=== PATIENT | male | born 1955 | race Caucasian/White ===

== ENCOUNTER 2022-02-17 06:19 | Inpatient (IN) | payer BC, MEDICARE, OTHER ==
[2022-02-17] MEDS ORDERED: SODIUM CHLORIDE 0.9% 1000 ML 1,000 ML IV ONE (08:15)
--- NOTE | 2022-02-17 08:18 | Emergency Department Report ---
<KLAUDIAKATT BAXTER Carmela - Last Filed: 02/17/22 09:42> ED General Adult HPI - General Chief complaint: Pain General Stated complaint: FOOT PAIN Time Seen by Provider: 02/17/22 07:56 Source: patient, family Mode of arrival: Wheelchair Limitations: Language Barrier, Physical Limitation - History of Present Illness Initial comments: Patient is a 66-year-old male that comes to the emergency room with right great toe pain. He is a patient of Dr. Arndt, vascular surgery. Dr. Arndt has called the ER and informed us that patient has known gangrene of the foot and will likely need surgery today. He has been made n.p.o. Patient is complaining of severe right foot pain. He has a PICC line and is receiving cephalosporins for his infection. Of note patient has had a previous kidney transplant. Dr. Arndt requested nephrology and ID consults. -: Gradual Location: lower extremity Severity scale (0 -10): 9 Quality: aching Consistency: constant Improves with: none Worsens with: none Associated Symptoms: denies other symptoms. denies: confusion, chest pain, cough, diaphoresis, fever/chills, headaches, loss of appetite, malaise, nausea/vomiting, rash, shortness of breath, syncope, weakness Treatments Prior to Arrival: other (Patient is on IV antibiotics) - Related Data Home Medications Medication Instructions Recorded Confirmed Last Taken Cinacalcet HCl [Sensipar] 60 mg PO DAILY 09/06/13 09/06/13 09/05/13 HYDROcodone/ACETAMINOPHEN 7.5 mg PO Q6HR PRN 09/06/13 09/06/13 09/05/13 [Hydrocodon-Acetaminoph 7.5-325] Lanthanum Carbonate [Fosrenol] 1,000 mg PO DAILY 09/06/13 09/06/13 Unknown NIFEdipine [NIFEdipine ER] 90 mg PO DAILY 09/06/13 09/06/13 09/07/13 08:00 Sevelamer Carbonate [Renvela] 800 mg PO TIDWM 09/06/13 09/06/13 09/05/13 Previous Rx's Medication Instructions Recorded Last Taken Type HYDROcodone/APAP 7.5-325 [[place] 1 - 2 each PO Q6HR PRN #30 tablet 09/07/13 Unknown Rx 7.5/325 mg] Allergies Allergy/AdvReac Type Severity Reaction Status Date / Time promethazine HCl AdvReac Mild Unknown Verified 09/07/13 10:51 [From Phenergan] ED Review of Systems Comment: All other systems reviewed and negative ED Past Medical Hx - Past Medical History Previous Medical History?: Yes Hx Hypertension: Yes (NO CHEST PAIN) Hx Diabetes: Yes Hx Seizures: No - Surgical History Past Surgical History?: Yes Hx Appendectomy: Yes Additional Surgical History: Status post amputation of right great toe--renal transplant patient - Social History Smoking Status: Former Smoker Substance Use Type: None - Medications Home Medications: Home Medications Medication Instructions Recorded Confirmed Last Taken Type Cinacalcet HCl [Sensipar] 60 mg PO DAILY 09/06/13 09/06/13 09/05/13 History HYDROcodone/ACETAMINOPHEN 7.5 mg PO Q6HR PRN 09/06/13 09/06/13 09/05/13 History [Hydrocodon-Acetaminoph 7.5-325] Lanthanum Carbonate [Fosrenol] 1,000 mg PO DAILY 09/06/13 09/06/13 Unknown History NIFEdipine [NIFEdipine ER] 90 mg PO DAILY 09/06/13 09/06/13 09/07/13 08:00 History Sevelamer Carbonate [Renvela] 800 mg PO TIDWM 09/06/13 09/06/13 09/05/13 History HYDROcodone/APAP 7.5-325 [[place] 1 - 2 each PO Q6HR PRN #30 tablet 09/07/13 Unknown Rx 7.5/325 mg] ED Physical Exam - General Limitations: No Limitations, Language Barrier, Physical Limitation General appearance: alert, in no apparent distress - Head Head exam: Present: atraumatic, normocephalic - Eye Eye exam: Present: normal appearance - ENT ENT exam: Present: mucous membranes moist - Neck Neck exam: Present: normal inspection - Respiratory Respiratory exam: Present: normal lung sounds bilaterally. Absent: respiratory distress - Cardiovascular Cardiovascular Exam: Present: regular rate, normal rhythm. Absent: systolic murmur, diastolic murmur, rubs, gallop - GI/Abdominal GI/Abdominal exam: Present: soft, normal bowel sounds - Rectal Rectal exam: Present: deferred - Extremities Exam Extremities exam: Present: normal inspection - Back Exam Back exam: Present: normal inspection - Neurological Exam Neurological exam: Present: alert, oriented X3 - Psychiatric Psychiatric exam: Present: normal affect, normal mood - Skin Skin exam: Present: warm, dry, intact, normal color. Absent: rash ED Course - Reevaluation(s) Reevaluation #1: 02/17/22 08:[address] Arndt- BIANCAO for likely surgery today 02/17/22 09:35 Staffed with [facility] I have ordered the consult to nephrology and ID: RN to call services Reevaluation #2: 02/17/22 09:36 Dr. Arndt updated. He will see patient. Reevaluation #3: 02/17/22 09:44 Patient has refused peripheral stick for blood cultures. I told him infectious disease has been consulted to make sure that he is not bacteremic and on appropriate antibiotics. I told him that these cultures could not be drawn from his PICC line. He states he will allow the lab to stick him. Patient does have a fistula in the left arm ED Medical Decision Making - Lab Data Result diagrams: 02/17/22 08:36 02/17/22 08:14 - Medical Decision Making Labs 02/17/22 02/17/22 02/17/22 08:14 08:36 08:36 WBC 8.9 RBC 4.46 Hgb 12.8 Hct 39.0 MCV 87 MCH 29 MCHC 33 RDW 14.8 Plt Count 156 Lymph % (Auto) 13.7 [place] % (Auto) 9.0 H Eos % (Auto) 1.2 Baso % (Auto) 0.5 Lymph # (Auto) 1.2 [place] # (Auto) 0.8 Eos # (Auto) 0.1 Baso # (Auto) 0.0 Seg Neutrophils % 75.6 H Seg Neutrophils # 6.7 Sodium 139 Potassium 3.7 Chloride 103.2 Carbon Dioxide 25 Anion Gap 15 BUN 13 Creatinine 0.6 L Estimated GFR > 60 BUN/Creatinine Ratio 22 Glucose 146 H Lactic Acid 1.60 Calcium 9.9 Total Bilirubin 0.20 AST 57 H ALT 192 H Alkaline Phosphatase 237 H Total Protein 6.5 Albumin 3.8 L Albumin/Globulin Ratio 1.4 Vital Signs 02/17/22 06:34 Temperature 97.5 F L Pulse Rate 104 H Respiratory 18 Rate Blood Pressure 143/64 [Right] O2 Sat by Pulse 100 Oximetry Patient has a PICC line in place, his antibiotics were infusing on admission. Labs noted Blood cultures pending. UA pending. Patient has been given a liter of normal saline while in the emergency room. Patient medicated for pain. Family is at bedside. Patient being admitted for vascular surgery evaluation by Dr. Arndt. [facility] will admit. ID and nephrology have been consulted. Patient and family has been updated on impending admission. They verbalized understanding. 0930 patient remains n.p.o. pending admission - Differential Diagnosis Gangrene, diabetic wound, rule out sepsis ED Disposition Clinical Impression: Gangrene of foot, Diabetes mellitus, History of kidney transplant Disposition: ADMITTED INPATIENT Is pt being admited?: Yes Does the pt Need Aspirin: No Condition: Stable Time of Disposition: 09:36 <BRIT BANG - Last Filed: 02/17/22 14:41> ED Review of Systems ROS: Stated complaint: FOOT PAIN Other details as noted in HPI ED Course Vital Signs 02/17/22 06:34 Temperature 97.5 F L Pulse Rate 104 H Respiratory 18 Rate Blood Pressure 143/64 [Right] O2 Sat by Pulse 100 Oximetry ED Medical Decision Making - Lab Data Result diagrams: 02/17/22 08:36 02/17/22 08:14 Critical care attestation.: If time is entered above; I have spent that time in minutes in the direct care of this critically ill patient, excluding procedure time.
[2022-02-17] MEDS ORDERED: MORPHINE 4 MG/1 ML INJ IV ONE (08:20)
[2022-02-17 09:00] LABS: Basophils % (Auto) 0.5 % (0.0-1.8); Eosinophils # (Auto) 0.1 K/mm3 (0.0-0.4); Eosinophils % (Auto) 1.2 % (0.0-4.3); Hemoglobin 12.8 gm/dl (11.8-15.2); Lymphocytes # (Auto) 1.2 K/mm3 (1.2-5.4); Lymphocytes % (Auto) 13.7 % (13.4-35.0); Mean Corpuscular HGB Conc 33 % (32-34); Mean Corpuscular Volume 87 fl (84-94); Monocytes # (Auto) 0.8 K/mm3 (0.0-0.8); Platelet Count 156 K/mm3 (140-440); Red Blood Count 4.46 M/mm3 (3.65-5.03); Red Cell Distribution Width 14.8 % (13.2-15.2)
[2022-02-17 09:20] LABS: Alanine Aminotransferase 192 units/L (7-56); Albumin 3.8 g/dL (3.9-5); BUN/Creatinine Ratio 22; Blood Urea Nitrogen 13 mg/dL (9-20); Calcium 9.9 mg/dL (8.4-10.2); Hemolysis Index 5
[2022-02-17 09:39] LABS: INR 0.87 (0.87-1.13)
[2022-02-17 09:40] LABS: Partial Thromboplastin Time 29.5 Sec. (24.2-36.6)
[2022-02-17] MEDS ORDERED: MORPHINE 4 MG/1 ML INJ IV PRN (11:00)
[2022-02-17] MEDS ORDERED: ACETAMINOPHEN 325 MG TAB PO PRN (11:00)
--- NOTE | 2022-02-17 11:03 | History and Physical Report ---
History of Present Illness Date of examination: 02/17/22 History of present illness: Patient is a 66-year-old male with history of gangrene, type 2 diabetes, hypertension, ESRD status post kidney transplant who presented with right great toe pain. He is followed by Dr. Arndt in the vascular surgery clinic for management of his gangrene. He was recently started on Rocephin for osteomyelitis 2 weeks ago. He reports waking up with 10 out of 10 throbbing pain this morning. He has never had similar pain in the past. He does have a PICC line in place. He reports taking all his medications and his gives him the Rocephin daily. Labs are notable for AST 57 ALT 182. All other labs and vitals were within normal limits. The patient was admitted for urgent vascular surgery intervention. Infectious disease and nephrology were consulted in the ED. Past History Past Medical History: diabetes, ESRD, hypertension, other (LLE limb ischemia) Past Surgical History: appendectomy, Other (kidney transplant, eye surgery) Social history: no significant social history. denies: smoking, alcohol abuse Family history: no significant family history Medications and Allergies Allergies Allergy/AdvReac Type Severity Reaction Status Date / Time promethazine HCl AdvReac Mild Unknown Verified 09/07/13 10:51 [From Phenergan] Home Medications Medication Instructions Recorded Confirmed Last Taken Type Cinacalcet HCl [Sensipar] 60 mg PO DAILY 09/06/13 09/06/13 09/05/13 History HYDROcodone/ACETAMINOPHEN 7.5 mg PO Q6HR PRN 09/06/13 09/06/13 09/05/13 History [Hydrocodon-Acetaminoph 7.5-325] Lanthanum Carbonate [Fosrenol] 1,000 mg PO DAILY 09/06/13 09/06/13 Unknown History NIFEdipine [NIFEdipine ER] 90 mg PO DAILY 09/06/13 09/06/13 09/07/13 08:00 History Sevelamer Carbonate [Renvela] 800 mg PO TIDWM 09/06/13 09/06/13 09/05/13 History HYDROcodone/APAP 7.5-325 [[place] 1 - 2 each PO Q6HR PRN #30 tablet 09/07/13 Unknown Rx 7.5/325 mg] Active Meds: Active Medications Acetaminophen (Acetaminophen 325 Mg Tab) 650 mg PO Q4H PRN PRN Reason: Pain MILD(1-3)/Fever >100.5/HELLER Hydrocodone Bitart/Acetaminophen (Hydrocodone/Acetaminophen 5-325 Mg Tab) 2 each PO Q6H PRN PRN Reason: Pain, Moderate (4-6) Heparin Sodium (Porcine) (Heparin 5,000 Unit/1 Ml Vial) 5,000 unit SUB-Q TID BR[place]KE Morphine Sulfate (Morphine 4 Mg/1 Ml Inj) 4 mg IV Q4H PRN PRN Reason: Pain , Severe (7-10) Ondansetron HCl (Ondansetron 4 Mg/2 Ml Inj) 4 mg IV Q8H PRN PRN Reason: Nausea And Vomiting Sodium Chloride (Sodium Chloride 0.9% 10 Ml Flush Syringe) 10 ml IV BID BROOKE Sodium Chloride (Sodium Chloride 0.9% 10 Ml Flush Syringe) 10 ml IV PRN PRN PRN Reason: LINE FLUSH Review of Systems All systems: negative Constitutional: no weight loss, no weight gain, no fever, no chills, no night sweats Ears, nose, mouth and throat: deferred Cardiovascular: no chest pain, no palpitations, no edema, no lightheadedness, no shortness of breath Respiratory: no cough, no shortness of breath, no dyspnea on exertion, no congestion, no wheezing Gastrointestinal: no abdominal pain, no nausea, no vomiting, no diarrhea, no loss of appetite Musculoskeletal: no shooting arm pain, no arm numbness/tingling, no low back pain, no leg numbness/tingling, no morning stiffness, no frequent falls Integumentary: deferred Neurological: no parathesias, no numbness, no syncope, no tremors, no headaches Endocrine: no polydipsia, no polyuria, no high blood sugars Exam - Physical Exam Narrative exam: GENERAL: Well-developed well-nourished. In no acute distress. HEENT: Normocephalic. Atraumatic. NECK: Supple. CHEST/LUNGS: CTAB on room air HEART/CARDIOVASCULAR: RRR. No murmur, rubs or gallops appreciated. ABDOMEN: +BS. NT/ND. SKIN: No rashes noted. NEURO: No focal motor deficit. Follows all commands. MUSCULOSKELETAL: No joint effusion EXTREMITIES: R foot bandaged, red, swollen and TTP. L foot with toe amputation. PSYCH: Cooperative. - Constitutional Vitals: Temp Pulse Resp BP Pulse Ox 97.5 F L 104 H 18 143/64 100 02/17/22 06:34 02/17/22 06:34 02/17/22 06:34 02/17/22 06:34 02/17/22 06:34 Results - Labs CBC & Chem 7: 02/17/22 08:36 02/17/22 08:14 Labs: Laboratory Last Values WBC 8.9 K/mm3 (4.5-11.0) 02/17/22 08:36 RBC 4.46 M/mm3 (3.65-5.03) 02/17/22 08:36 Hgb 12.8 gm/dl (11.8-15.2) 02/17/22 08:36 Hct 39.0 % (35.5-45.6) 02/17/22 08:36 MCV 87 fl (84-94) 02/17/22 08:36 MCH 29 pg (28-32) 02/17/22 08:36 MCHC 33 % (32-34) 02/17/22 08:36 RDW 14.8 % (13.2-15.2) 02/17/22 08:36 Plt Count 156 K/mm3 (140-440) 02/17/22 08:36 Lymph % (Auto) 13.7 % (13.4-35.0) 02/17/22 08:36 [place] % (Auto) 9.0 % (0.0-7.3) H 02/17/22 08:36 Eos % (Auto) 1.2 % (0.0-4.3) 02/17/22 08:36 Baso % (Auto) 0.5 % (0.0-1.8) 02/17/22 08:36 Lymph # (Auto) 1.2 K/mm3 (1.2-5.4) 02/17/22 08:36 [place] # (Auto) 0.8 K/mm3 (0.0-0.8) 02/17/22 08:36 Eos # (Auto) 0.1 K/mm3 (0.0-0.4) 02/17/22 08:36 Baso # (Auto) 0.0 K/mm3 (0.0-0.1) 02/17/22 08:36 Seg Neutrophils % 75.6 % (40.0-70.0) H 02/17/22 08:36 Seg Neutrophils # 6.7 K/mm3 (1.8-7.7) 02/17/22 08:36 PT 12.7 Sec. (12.2-14.9) 02/17/22 08:36 INR 0.87 (0.87-1.13) 02/17/22 08:36 APTT 29.5 Sec. (24.2-36.6) 02/17/22 08:36 Sodium 139 mmol/L (137-145) 02/17/22 08:14 Potassium 3.7 mmol/L (3.6-5.0) 02/17/22 08:14 Chloride 103.2 mmol/L (98-107) 02/17/22 08:14 Carbon Dioxide 25 mmol/L (22-30) 02/17/22 08:14 Anion Gap 15 mmol/L 02/17/22 08:14 BUN 13 mg/dL (9-20) 02/17/22 08:14 Creatinine 0.6 mg/dL (0.8-1.3) L 02/17/22 08:14 Estimated GFR > 60 ml/min 02/17/22 08:14 BUN/Creatinine Ratio 22 % 02/17/22 08:14 Glucose 146 mg/dL (75-100) H 02/17/22 08:14 Lactic Acid 1.60 mmol/L (0.7-2.0) 02/17/22 08:36 Calcium 9.9 mg/dL (8.4-10.2) 02/17/22 08:14 Total Bilirubin 0.20 mg/dL (0.1-1.2) 02/17/22 08:14 AST 57 units/L (5-40) H 02/17/22 08:14 ALT 192 units/L (7-56) H 02/17/22 08:14 Alkaline Phosphatase 237 units/L (35-129) H 02/17/22 08:14 Total Protein 6.5 g/dL (6.3-8.2) 02/17/22 08:14 Albumin 3.8 g/dL (3.9-5) L 02/17/22 08:14 Albumin/Globulin Ratio 1.4 % 02/17/22 08:14 Assessment and Plan Assessment and plan: #Right lower extremity critical limb ischemia #Gangrene #PAD #Osteomyelitis -Plan for endovascular revascularization tomorrow -Possible TMA on Thursday -Continue Plavix and cilostazol -access PICC line -ID consulted, assistance appreciated #Hypertension -currently controlled -will restart metoprolol succinate 50mg BID -goal SBP <160 #History of kidney transplant -transplanted 8 years ago -will continue prednisone and cellcept -Nephrology consulted, assistance appreciated -will avoid nephrotoxins #Insulin-dependent type 2 diabetes -patient takes levemir 18 QHS and novolog 16 units TID -will start SSI, lantus 10U qhs and novolog 6 units TID -will adjust according to POC glucose readings -goal BG 140-180 while inpatient #Advanced care planning -Disease education conducted, care plan discussed, diagnoses discussed, prognosis discussed, and patient acknowledges understanding with care plan -Time: +30 min Advance Directives: No VTE prophylaxis?: Chemical Plan of care discussed with patient/family: Yes
[2022-02-17] MEDS ORDERED: SODIUM CHLORIDE 0.9% 1000 ML 1,000 ML ONE ×2 (11:15→13:08)
--- NOTE | 2022-02-17 11:33 | Consultation ---
History of Present Illness - Reason for Consult Consult date: 02/17/22 - History of Present Illness The patient is a 66 year old male with ESRD s/p kidney transplant, he was admitted for worsening right toe pain and renal consult was requested for history of kidney transplant. he had kidney transplant done 8 years ago in [place]. Past History Past Medical History: hypertension Medications and Allergies Allergies Allergy/AdvReac Type Severity Reaction Status Date / Time promethazine HCl AdvReac Mild Unknown Verified 09/07/13 10:51 [From Phenergan] Home Medications Medication Instructions Recorded Confirmed Last Taken Type Cinacalcet HCl [Sensipar] 60 mg PO DAILY 09/06/13 09/06/13 09/05/13 History HYDROcodone/ACETAMINOPHEN 7.5 mg PO Q6HR PRN 09/06/13 09/06/13 09/05/13 History [Hydrocodon-Acetaminoph 7.5-325] Lanthanum Carbonate [Fosrenol] 1,000 mg PO DAILY 09/06/13 09/06/13 Unknown History NIFEdipine [NIFEdipine ER] 90 mg PO DAILY 09/06/13 09/06/13 09/07/13 08:00 History Sevelamer Carbonate [Renvela] 800 mg PO TIDWM 09/06/13 09/06/13 09/05/13 History HYDROcodone/APAP 7.5-325 [[place] 1 - 2 each PO Q6HR PRN #30 tablet 09/07/13 Unknown Rx 7.5/325 mg] Active Meds: Active Medications Acetaminophen (Acetaminophen 325 Mg Tab) 650 mg PO Q4H PRN PRN Reason: Pain MILD(1-3)/Fever >100.5/HELLER Hydrocodone Bitart/Acetaminophen (Hydrocodone/Acetaminophen 5-325 Mg Tab) 2 each PO Q6H PRN PRN Reason: Pain, Moderate (4-6) Heparin Sodium (Porcine) (Heparin 5,000 Unit/1 Ml Vial) 5,000 unit SUB-Q TID BR[place]KE Morphine Sulfate (Morphine 4 Mg/1 Ml Inj) 4 mg IV Q4H PRN PRN Reason: Pain , Severe (7-10) Ondansetron HCl (Ondansetron 4 Mg/2 Ml Inj) 4 mg IV Q8H PRN PRN Reason: Nausea And Vomiting Sodium Chloride (Sodium Chloride 0.9% 10 Ml Flush Syringe) 10 ml IV BID BROOKE Sodium Chloride (Sodium Chloride 0.9% 10 Ml Flush Syringe) 10 ml IV PRN PRN PRN Reason: LINE FLUSH Review of Systems All systems: negative (right toe pain) Exam - Vital Signs Vital signs: Vital Signs Temp Pulse Resp BP Pulse Ox 97.5 F L 104 H 18 143/64 100 02/17/22 06:34 02/17/22 06:34 02/17/22 06:34 02/17/22 06:34 02/17/22 06:34 Results - Lab Results 02/17/22 08:36 02/17/22 08:14 Most recent lab results Calcium 9.9 mg/dL (8.4-10.2) 02/17/22 08:14 Assessment and Plan Gangrene of foot Diabetes mellitus History of kidney transplant kidney function is normal will need to verify anti-rejection regimen as an outpatient, according to him , he is on Cellcept 500 mg BID and prednisone 50 mg once a day renally dose meds strict I&O daily weight.
[2022-02-17] MEDS ORDERED: HEPARIN/NS 5000 UNIT/500ML 1,000 ML IR ONE (12:27)
[2022-02-17] MEDS ORDERED: LIDOCAINE 2%/EPINEPHRINE 1:200,000 VIAL (20 ML) INFILTRATI ONE (12:27)
[2022-02-17] MEDS ORDERED: ceFAZolin/Water 2 GM/20 ML 2 GM/20 ML SYRINGE IV ONE (12:28)
--- NOTE | 2022-02-17 12:53 | Consultation ---
History of Present Illness - Reason for Consult Consult date: 02/17/22 gangrene RLE Requesting physician: KATT VILLALOBOS - History of Present Illness Patient is a 66-year-old male that comes to the emergency room with right great toe pain. He is a patient of Dr. Arndt, vascular surgery. Dr. Arndt has called the ER and informed us that patient has known gangrene of the foot and will likely need surgery today. He has been made n.p.o. Patient is complaining of severe right foot pain. He has a PICC line and is receiving cephalosporins for his infection. Of note patient has had a previous kidney transplant. Dr. Arndt requested nephrology and ID consults. Vascular consulted for gangrene of the right lower extremity. Patient has critical limb ischemia of the right lower extremity with a palpable right dorsalis pedis pulse but nonpalpable right posterior tibial pulse. His gangrene will require TMA. Patient is on outpatient antibiotics for osteomyelitis. He is on Rocephin daily. This can be corroborated with Dr. Miller and Dr. [facility]. Patient has a renal transplant. Will need nephrology consult. Patient will need preprocedural hydration for today. Past History Past Medical History: hypertension Medications and Allergies Allergies Allergy/AdvReac Type Severity Reaction Status Date / Time promethazine HCl AdvReac Mild Unknown Verified 09/07/13 10:51 [From Phenergan] Home Medications Medication Instructions Recorded Confirmed Last Taken Type Cinacalcet HCl [Sensipar] 60 mg PO DAILY 09/06/13 09/06/13 09/05/13 History HYDROcodone/ACETAMINOPHEN 7.5 mg PO Q6HR PRN 09/06/13 09/06/13 09/05/13 History [Hydrocodon-Acetaminoph 7.5-325] Lanthanum Carbonate [Fosrenol] 1,000 mg PO DAILY 09/06/13 09/06/13 Unknown History NIFEdipine [NIFEdipine ER] 90 mg PO DAILY 09/06/13 09/06/13 09/07/13 08:00 History Sevelamer Carbonate [Renvela] 800 mg PO TIDWM 09/06/13 09/06/13 09/05/13 History HYDROcodone/APAP 7.5-325 [[place] 1 - 2 each PO Q6HR PRN #30 tablet 09/07/13 Unknown Rx 7.5/325 mg] Active Meds: Active Medications Acetaminophen (Acetaminophen 325 Mg Tab) 650 mg PO Q4H PRN PRN Reason: Pain MILD(1-3)/Fever >100.5/HELLER Hydrocodone Bitart/Acetaminophen (Hydrocodone/Acetaminophen 5-325 Mg Tab) 2 each PO Q6H PRN PRN Reason: Pain, Moderate (4-6) Heparin Sodium (Porcine) (Heparin 5,000 Unit/1 Ml Vial) 5,000 unit SUB-Q TID BROOKE Sodium Chloride (Nacl 0.9% 1000 Ml) 1,000 mls @ 100 mls/hr IV DIRECT BROOKE Morphine Sulfate (Morphine 4 Mg/1 Ml Inj) 4 mg IV Q4H PRN PRN Reason: Pain , Severe (7-10) Mycophenolate Mofetil (Mycophenolate 500 Mg Tab) 500 mg PO BID BROOKE Ondansetron HCl (Ondansetron 4 Mg/2 Ml Inj) 4 mg IV Q8H PRN PRN Reason: Nausea And Vomiting Prednisone (Prednisone 5 Mg Tab) 5 mg PO QDAY BROOKE Sodium Chloride (Sodium Chloride 0.9% 10 Ml Flush Syringe) 10 ml IV BID BROOKE Sodium Chloride (Sodium Chloride 0.9% 10 Ml Flush Syringe) 10 ml IV PRN PRN PRN Reason: LINE FLUSH Review of Systems All systems: negative (see HPI) Exam - Constitutional Vitals: Temp Pulse Resp BP Pulse Ox 97.5 F L 104 H 18 143/64 100 02/17/22 06:34 02/17/22 06:34 02/17/22 06:34 02/17/22 06:34 02/17/22 06:34 General appearance: Present: no acute distress - EENT Eyes: Present: EOM intact ENT: hearing intact - Respiratory Respiratory effort: normal - Extremities Extremities: abnormal (Worsening gangrene of the right third, fourth, and amputation bed of the fifth digit with lateral foot gangrene ) - Abdominal General gastrointestinal: Present: soft, non-tender - Psychiatric Psychiatric: appropriate mood/affect, cooperative Results - Labs CBC & Chem 7: 02/17/22 08:36 02/17/22 08:14 Labs: Abnormal lab results 02/17/22 02/17/22 Range/Units 08:14 08:36 [place] % (Auto) 9.0 H (0.0-7.3) % Seg Neutrophils % 75.6 H (40.0-70.0) % Creatinine 0.6 L (0.8-1.3) mg/dL Glucose 146 H (75-100) mg/dL AST 57 H (5-40) units/L ALT 192 H (7-56) units/L Alkaline Phosphatase 237 H (35-129) units/L Albumin 3.8 L (3.9-5) g/dL Assessment and Plan 66-year-old male with end-stage renal disease status post renal transplant with previous left lower extremity critical limb ischemia status post limb salvage who now presents with right lower extremity critical limb ischemia with progressive gangrene. Patient requires endovascular revascularization of the right lower extremity. Risk, benefits, and alternatives discussed. Afterwards, patient will be made n.p.o. for TMA tomorrow with possible graft material. This was discussed in depth with patient. He agrees with procedure. Patient will likely require wound VAC after procedure and wound VAC order was already placed. Continue Plavix and cilostazol. Patient has outpatient continuous IV antibiotics running. ID will need to be consulted for management. Patient has end-stage renal disease status post renal transplant. Require nephrology consult for management.
[2022-02-17] MEDS ORDERED: NITROGLYCERIN DRIP 50 MG/250 ML BOTTLE ONE (13:09)
[2022-02-17] MEDS ORDERED: VERAPAMIL 5 MG/2 ML INJ ONE (13:09)
[2022-02-17] MEDS: MIDAZOLAM 2 MG/2 ML INJ ONE ×3 (13:12→14:08)
[2022-02-17] MEDS: fentaNYL 100 MCG/2 ML INJ ONE ×3 (13:13→14:07)
[2022-02-17] MEDS: HEPARIN 10,000 UNITS/10 ML VIAL ONE ×2 (13:34→14:10)
[2022-02-17] MEDS ORDERED: MIDAZOLAM 2 MG/2 ML INJ ONE (14:12)
[2022-02-17] MEDS ORDERED: fentaNYL 100 MCG/2 ML INJ ONE (14:13)
[2022-02-17] MEDS ORDERED: ALUM-MAG HYDROXIDE-SIMETHICONE 200-200-20MG/5ML ORAL LIQD 30 ML ONE (14:39)
[2022-02-17] MEDS: CLOPIDOGREL 300 MG TAB PO ONE ×2 (14:51→17:40)
--- NOTE | 2022-02-17 17:18 | Post Operative Note ---
Date of procedure: 02/17/22 Pre-op diagnosis: Critical limb ischemia of the right lower extremity Post-op diagnosis: same Procedure: 1. Ultrasound-guided access of the left common femoral artery. 2. Angiography of the left lower extremity. 3. Selection of the abdominal aorta with angiography. 4. Selection of the right external iliac artery, superficial femoral artery, and popliteal artery with angiography. 5. Selection of the right posterior tibial artery, common plantar artery, and lateral plantar artery. 6. Angioplasty of the lateral plantar artery, common plantar artery, and distal posterior tibial artery with a 1.5 mm x 20 mm coronary angioplasty balloon 7. Infusion of nitroglycerin in the lateral plantar artery, common plantar artery, and distal posterior tibial artery. 8. Closure of the left common femoral artery with 6 German Pro style Anesthesia: local (With conscious sedation) Surgeon: JAVY JUDD Estimated blood loss: minimal Condition: stable Disposition: floor
--- NOTE | 2022-02-17 17:19 | Operative Report ---
Operative Report Operative Report: EXAM: 1. Ultrasound-guided access of the left common femoral artery. 2. Angiography of the left lower extremity. 3. Selection of the abdominal aorta with angiography. 4. Selection of the right external iliac artery, superficial femoral artery, and popliteal artery with angiography. 5. Selection of the right posterior tibial artery, common plantar artery, and lateral plantar artery. 6. Angioplasty of the lateral plantar artery, common plantar artery, and distal posterior tibial artery with a 1.5 mm x 20 mm coronary angioplasty balloon 7. Infusion of nitroglycerin in the lateral plantar artery, common plantar artery, and distal posterior tibial artery. 8. Closure of the left common femoral artery with 6 Uzbek Pro style DATE: 02/17/2022 PERMANENT MOLD SUPERVISOR: JAVY JUDD MD INDICATION: Critical limb ischemia of the left lower extremity with gangrene MEDICATIONS: Please see nursing report for full details. DEVICES: 1.5 mm x 20 mm balloon CONTRAST: Please see catheter report for full details. PROCEDURE: The risk, benefits, and alternatives were discussed; written informed consent was obtained. Patient was brought to the [facility] and the groins were prepped and draped in a sterile fashion. Ultrasound was used to evaluate the left common femoral artery which was patent. 21-gauge micropuncture needle was used to access the left common femoral artery under ultrasound guidance. 0.018 inch wire was passed into the aorta. Needle was exchanged for transitional dilator. Wire was exchanged for a 0.035 inch wire. Transitional dilator was exchanged for 5 Uzbek sheath. Digital subtraction angiography was performed demonstrating patency of the left external iliac artery, common femoral artery, proximal superficial femoral artery, and profunda femoral artery. The puncture was appropriate, above the bifurcation and below the inferior epigastric artery. The abdominal aorta was selected and digital subtraction angiography was performed. The right external iliac artery, superficial femoral artery, and popliteal artery were selected and digital subtraction angiography was per formed. Digital subtraction angiography demonstrated patency of the infrarenal abdominal aorta, bilateral common iliac arteries, external iliac arteries, and internal iliac arteries. The right common femoral artery, profunda femoral artery, superficial femoral artery, and popliteal artery were patent. The right renal transplant arising from the right iliac bifurcation was patent. There was infrapopliteal arterial disease. The anterior tibial artery was small but patent to the level of the distal calf at which point there was a 30 to 40% stenosis and resumption of the small caliber of the vessel with patency of the dorsalis pedis artery which was small and lateral tarsal artery which was small. The tibioperoneal trunk was patent. The peroneal artery was small but patent. The posterior tibial artery was small in caliber and patent to the level of the ankle. There was a 90% stenosis of the common plantar artery, a short segment occlusion of the lateral plantar artery, and a diminutive medial plantar artery. There was sluggish flow from the ankle to the foot. After reviewing the diagnostic angiogram the past, the patient was heparinized. Sheath was exchanged for 6 Uzbek 90 cm [place] destination positioned in the right popliteal artery. Wire and catheter were used to cross the posterior tibial artery and then the lateral plantar artery. Digital subtraction angiography was performed confirming position. 1.5 mm x 20 mm coronary angioplasty balloon was then used to perform angioplasty of the lateral plantar artery, and common plantar artery. Large amounts of nit roglycerin were used to prevent spasm. Digital subtraction angiography was performed demonstrating 20% residual narrowing of the common plantar artery and lateral plantar artery with direct flow into the foot. Upon injection at the level of the knee, the posterior tibial artery and anterior tibial artery are now equal in speed without sluggish flow. At this point, all wires, catheters, and sheaths were retracted to the left external iliac artery and the site was closed with a 6 Uzbek Pro style. Patient tolerated the procedure well. No immediate postprocedural complications. FINDINGS: Please see procedure note above IMPRESSION: Successful angioplasty and revascularization of the right common plantar artery and lateral plantar artery of the posterior tibial artery distribution.
[2022-02-17] MEDS ORDERED: DEXTROSE 50% IN WATER (25GM) 50 ML SYRINGE IV PRN (17:24)
[2022-02-17] MEDS: HEPARIN 5,000 UNIT/1 ML VIAL SUB-Q SCH (17:40)
[2022-02-17] MEDS: predniSONE 5 MG TAB PO SCH (17:41)
[2022-02-17] MEDS: FAMOTIDINE 20 MG TAB PO SCH (18:02)
[2022-02-17] MEDS: CILOSTAZOL 100 MG TAB PO SCH (18:22)
[2022-02-17] MEDS: HYDROcodone/ACETAMINOPHEN 5-325 MG TAB PO PRN (22:32)
[2022-02-18] MEDS: cefTRIAXone/NS 2 GM/100 ML 2 GM/100 ML BAG IV SCH ×2 (01:23→20:51)
[2022-02-18] MEDS: MYCOPHENOLATE 500 MG TAB PO SCH ×3 (01:24→21:10)
[2022-02-18] MEDS: HEPARIN 5,000 UNIT/1 ML VIAL SUB-Q SCH ×4 (01:24→20:51)
[2022-02-18] MEDS: INSULIN LISPRO 100 UNIT/ML SUB-Q SCH ×5 (01:25→22:00)
[2022-02-18] MEDS: INSULIN GLARGINE 100 UNITS/ML SUB-Q SCH ×2 (01:25→21:18)
[2022-02-18] MEDS: CILOSTAZOL 100 MG TAB PO SCH ×3 (01:27→21:10)
[2022-02-18] MEDS: SODIUM CHLORIDE 0.9% 1000 ML 1,000 ML IV SCH ×2 (01:33→12:16)
[2022-02-18] MEDS: HYDROcodone/ACETAMINOPHEN 5-325 MG TAB PO PRN (04:15)
[2022-02-18] MEDS: HYDROmorphone 1 MG/1 ML INJ IV PRN ×4 (04:33→20:51)
[2022-02-18 05:35] LABS: Basophils % (Auto) 0.3 % (0.0-1.8); Eosinophils # (Auto) 0.1 K/mm3 (0.0-0.4); Eosinophils % (Auto) 1.3 % (0.0-4.3); Hematocrit 34.9 % (35.5-45.6); Hemoglobin 11.5 gm/dl (11.8-15.2); Lymphocytes # (Auto) 1.1 K/mm3 (1.2-5.4); Lymphocytes % (Auto) 14.4 % (13.4-35.0); Mean Corpuscular HGB Conc 33 % (32-34); Mean Corpuscular Volume 88 fl (84-94); Monocytes # (Auto) 0.6 K/mm3 (0.0-0.8); Monocytes % (Auto) 8.6 % (0.0-7.3); Platelet Count 141 K/mm3 (140-440); Red Blood Count 3.98 M/mm3 (3.65-5.03); Red Cell Distribution Width 14.8 % (13.2-15.2)
[2022-02-18 05:46] LABS: INR 0.88 (0.87-1.13)
[2022-02-18 05:52] LABS: Blood Urea Nitrogen 10 mg/dL (9-20); Calcium 9.2 mg/dL (8.4-10.2); Hemolysis Index 5
[2022-02-18 06:03] LABS: BUN/Creatinine Ratio 17
--- NOTE | 2022-02-18 09:10 | Progress Note ---
Assessment and Plan Assessment and plan: History of present illness: Patient is a 66-year-old male with history of gangrene, type 2 diabetes, hypertension, ESRD status post kidney transplant who presented with right great toe pain. He is followed by Dr. Arndt in the vascular surgery clinic for management of his gangrene. He was recently started on Rocephin for osteomyelitis 2 weeks ago. He reports waking up with 10 out of 10 throbbing pain this morning. He has never had similar pain in the past. He does have a PICC line in place. He reports taking all his medications and his gives him the Rocephin daily. Labs are notable for AST 57 ALT 182. All other labs and vitals were within normal limits. The patient was admitted for urgent vascular surgery intervention. Infectious disease and nephrology were consulted in the ED. Hospital Course: 02/18: Plan for TMA today with IR. Will follow up post op. Assessment and Plan: #Right lower extremity critical limb ischemia #Gangrene #PAD #Osteomyelitis -Plan for endovascular revascularization 02/18 by IR -Possible TMA on Thursday -Continue Plavix and cilostazol -access PICC line -ID consulted, assistance appreciated #Hypertension -currently controlled -will restart metoprolol succinate 50mg BID -goal SBP <160 #History of kidney transplant -transplanted 8 years ago -will continue prednisone and cellcept -Nephrology consulted, assistance appreciated -will avoid nephrotoxins #Insulin-dependent type 2 diabetes -patient takes levemir 18 QHS and novolog 16 units TID - SSI, lantus 10U qhs and novolog 6 units TID -will adjust according to POC glucose readings -goal BG 140-180 while inpatient #Obesity + 30 min preventative health counseling on for balanced diet /regular exercise, blood sugar optimization, risk factor modification, medication compliance in light of kidney transplant and critical limb ischemia. The high probability of a clinically significant, sudden or life threatening deterioration of the [multi] system(s) required my full and direct attention, intervention and personal management. The aggregate critical care time was [60] minutes. This time is in addition to time spent performing reported procedures but includes the following: [x] Data Review and interpretation [x] Patient assessment and monitoring of vital signs [x] Documentation [x] Medication orders and management History Interval history: Patient to OR for TMA. Hospitalist Physical - Physical exam Narrative exam: Physical Exam: VITAL SIGNS: Reviewed. GENERAL: Well-developed well-nourished. In no acute distress. HEENT: Normocephalic. Atraumatic. NECK: Supple. CHEST/LUNGS: CTAP on room air HEART/CARDIOVASCULAR: RRR. No murmur, rubs or gallops appreciated. ABDOMEN: +BS. NT/ND. SKIN: No rashes noted. NEURO: No focal motor deficit. Follows all commands. MUSCULOSKELETAL: No joint effusion EXTREMITIES: R foot bandaged, red, swollen and TTP. L foot with toe amputation. PSYCH: Cooperative. - Constitutional Vitals: Temp Pulse Resp BP Pulse Ox 98.6 F 89 15 140/46 97 02/18/22 03:00 02/18/22 07:00 02/18/22 07:00 02/18/22 07:00 02/18/22 07:00 General appearance: Present: no acute distress Results - Labs CBC & Chem 7: 02/18/22 04:00 02/18/22 04:00 Labs: Laboratory Last Values WBC 7.4 K/mm3 (4.5-11.0) 02/18/22 04:00 RBC 3.98 M/mm3 (3.65-5.03) 02/18/22 04:00 Hgb 11.5 gm/dl (11.8-15.2) L 02/18/22 04:00 Hct 34.9 % (35.5-45.6) L 02/18/22 04:00 MCV 88 fl (84-94) 02/18/22 04:00 MCH 29 pg (28-32) 02/18/22 04:00 MCHC 33 % (32-34) 02/18/22 04:00 RDW 14.8 % (13.2-15.2) 02/18/22 04:00 Plt Count 141 K/mm3 (140-440) 02/18/22 04:00 Lymph % (Auto) 14.4 % (13.4-35.0) 02/18/22 04:00 [place] % (Auto) 8.6 % (0.0-7.3) H 02/18/22 04:00 Eos % (Auto) 1.3 % (0.0-4.3) 02/18/22 04:00 Baso % (Auto) 0.3 % (0.0-1.8) 02/18/22 04:00 Lymph # (Auto) 1.1 K/mm3 (1.2-5.4) L 02/18/22 04:00 [place] # (Auto) 0.6 K/mm3 (0.0-0.8) 02/18/22 04:00 Eos # (Auto) 0.1 K/mm3 (0.0-0.4) 02/18/22 04:00 Baso # (Auto) 0.0 K/mm3 (0.0-0.1) 02/18/22 04:00 Seg Neutrophils % 75.4 % (40.0-70.0) H 02/18/22 04:00 Seg Neutrophils # 5.6 K/mm3 (1.8-7.7) 02/18/22 04:00 PT 12.9 Sec. (12.2-14.9) 02/18/22 04:00 INR 0.88 (0.87-1.13) 02/18/22 04:00 APTT 29.5 Sec. (24.2-36.6) 02/17/22 08:36 Sodium 136 mmol/L (137-145) L 02/18/22 04:00 Potassium 4.3 mmol/L (3.6-5.0) 02/18/22 04:00 Chloride 102.6 mmol/L (98-107) 02/18/22 04:00 Carbon Dioxide 24 mmol/L (22-30) 02/18/22 04:00 Anion Gap 14 mmol/L 02/18/22 04:00 BUN 10 mg/dL (9-20) 02/18/22 04:00 Creatinine 0.6 mg/dL (0.8-1.3) L 02/18/22 04:00 Estimated GFR > 60 ml/min 02/18/22 04:00 BUN/Creatinine Ratio 17 % 02/18/22 04:00 Glucose 205 mg/dL (75-100) H 02/18/22 04:00 POC Glucose 198 mg/dL (70-105) H 02/18/22 06:24 Lactic Acid 1.60 mmol/L (0.7-2.0) 02/17/22 08:36 Calcium 9.2 mg/dL (8.4-10.2) 02/18/22 04:00 Total Bilirubin 0.20 mg/dL (0.1-1.2) 02/17/22 08:14 AST 57 units/L (5-40) H 02/17/22 08:14 ALT 192 units/L (7-56) H 02/17/22 08:14 Alkaline Phosphatase 237 units/L (35-129) H 02/17/22 08:14 Total Protein 6.5 g/dL (6.3-8.2) 02/17/22 08:14 Albumin 3.8 g/dL (3.9-5) L 02/17/22 08:14 Albumin/Globulin Ratio 1.4 % 02/17/22 08:14 Blood Type O POSITIVE 02/17/22 08:36 Antibody Screen Negative 02/17/22 08:36 Microbiology: Microbiology 02/17/22 08:36 Peripheral/Venous Blood Culture - Preliminary Culture in Progress 02/17/22 08:36 Peripheral/Venous Blood Culture - Preliminary Culture in Progress Simmons/IV: Voiding Method Urinal Active Medications - Current Medications Current Medications: Generic Name Dose Route Start Last Admin Trade Name Freq PRN Reason Stop Dose Admin Acetaminophen 650 mg 02/17/22 11:00 Acetaminophen 325 Mg Tab PO Q4H PRN Pain MILD(1-3)/Fever >100.5/HELLER Hydrocodone Bitart/Acetaminophen 2 each 02/17/22 11:00 02/18/22 04:15 Hydrocodone/Acetaminophen 5-325 Mg Tab PO 2 each Q6H PRN Administration Pain, Moderate (4-6) Cilostazol 100 mg 02/17/22 15:00 02/18/22 01:27 Cilostazol 100 Mg Tab PO Not Given BID BROOKE Clopidogrel Bisulfate 75 mg 02/18/22 10:00 Clopidogrel 75 Mg Tab PO QDAY BROOKE Dextrose 50 ml 02/17/22 17:24 Dextrose 50% In Water (25gm) 50 Ml Syringe IV Q30MIN PRN Hypoglycemia Protocol Famotidine 40 mg 02/17/22 16:00 02/17/22 18:02 Famotidine 20 Mg Tab PO 40 mg QDAY BROOKE Administration Heparin Sodium (Porcine) 5,000 unit 02/17/22 14:00 02/18/22 01:24 Heparin 5,000 Unit/1 Ml Vial SUB-Q 5,000 unit TID BROOKE Administration Hydromorphone HCl 0.5 mg 02/17/22 14:38 02/18/22 04:33 Hydromorphone 1 Mg/1 Ml Inj IV 0.5 mg Q2H PRN Administration Pain , Severe (7-10) Sodium Chloride 1,000 mls @ 100 mls/hr 02/17/22 12:00 02/18/22 01:33 Nacl 0.9% 1000 Ml IV 100 mls/hr DIRECT BROOKE Administration Cefazolin Sodium 2 gm in 20 mls @ 80 mls/hr 02/18/22 12:00 Ancef/Sterile Water 2 Gm/20 Ml IV 02/18/22 20:00 PREOP NR Protocol Ceftriaxone Sodium 2 gm in 100 mls @ 200 mls/hr 02/17/22 20:00 02/18/22 01:23 Rocephin/Ns 2 Gm/100 Ml IV 200 mls/hr Q24H BROOKE Administration Protocol Insulin Glargine 10 units 02/17/22 22:00 02/18/22 01:25 Insulin Glargine 100 Units/Ml SUB-Q Not Given QHS [facility] Insulin Human Lispro 0 unit 02/17/22 22:00 02/18/22 01:25 Insulin Lispro 100 Unit/Ml SUB-Q Not Given ACHS [facility] Protocol Insulin Human Regular 6 units 02/18/22 07:30 Insulin Regular, Human 100 Units/1 Ml SUB-Q AC [facility] Metoprolol Succinate 50 mg 02/18/22 10:00 Metoprolol Succinate Xl 50 Mg Tab PO QDAY [facility] Mycophenolate Mofetil 500 mg 02/17/22 22:00 02/18/22 01:24 Mycophenolate 500 Mg Tab PO Not Given BID BROOKE Ondansetron HCl 4 mg 02/17/22 11:00 Ondansetron 4 Mg/2 Ml Inj IV Q8H PRN Nausea And Vomiting Prednisone 5 mg 02/17/22 12:00 02/17/22 17:41 Prednisone 5 Mg Tab PO Not Given QDAY BROOKE Sodium Chloride 10 ml 02/17/22 22:00 02/18/22 01:27 Sodium Chloride 0.9% 10 Ml Flush Syringe IV 10 ml BID BROOKE Administration Sodium Chloride 10 ml 02/17/22 11:00 Sodium Chloride 0.9% 10 Ml Flush Syringe IV PRN PRN LINE FLUSH
[2022-02-18] MEDS: INSULIN REGULAR, HUMAN 100 UNITS/1 ML SUB-Q SCH ×3 (09:32→16:47)
--- NOTE | 2022-02-18 10:29 | Anesthesia Day of Surgery ---
Anesthesia Day of Surgery - Day of Surgery Patient Examined: Yes Patient H&P Reviewed: Yes Patient is NPO: Yes
--- NOTE | 2022-02-18 10:33 | Anesthesia Consultation ---
Anesthesia Consult and Med Hx Date of service: 02/18/22 - Airway Anesthetic Teeth Evaluation: Good ROM Head & Neck: Adequate Mental/Hyoid Distance: Adequate Mallampati Class: Class III Intubation Access Assessment: Probably Good - Pulmonary Exam CTA: Yes - Cardiac Exam Cardiac Exam: RRR - Pre-Operative Health Status ASA Pre-Surgery Classification: ASA3 Proposed Anesthetic Plan: General - Pulmonary Hx Smoking: Yes (QUIT 1979) - Cardiovascular System Hx Hypertension: Yes (NO CHEST PAIN) Hx Coronary Artery Disease: Yes (CAROTID STENOSIS) - Central Nervous System Hx Seizures: No - Gastrointestinal Hx Gastroesophageal Reflux Disease: No - Endocrine Hx End Stage Renal Disease: Yes (LAST DIALYSIS 09/06/13) Hx Insulin Dependent Diabetes: Yes Hx Non-Insulin Dependent Diabetes: Yes - Hematic Hx Anemia: Yes - Other Systems Hx Alcohol Use: Yes (DAILY) Hx Substance Use: No Hx Obesity: No - Additional Comments Anesthesia Medical History Comments: NAC with past surgical history: appendectomy, cataract, kidney transplant
[2022-02-18] MEDS ORDERED: LACTATED RINGERS 1,000 ML ONE (11:02)
[2022-02-18 11:56] LABS: Bilirubin,Urine NEG (Negative); Blood,Urine SM (Negative); Color,Urine Yellow (Yellow); Mucus,Urine FEW /HPF; Urobilinogen,Urine < 2.0 mg/dL (<2.0)
[2022-02-18] MEDS ORDERED: ceFAZolin/Water 2 GM/20 ML 2 GM/20 ML SYRINGE IV NR (12:00)
--- NOTE | 2022-02-18 12:10 | Progress Note ---
Assessment and Plan Gangrene of foot Diabetes mellitus History of kidney transplant kidney function is normal cont Cellcept 500 mg BID and prednisone 50 mg once a day renally dose meds strict I&O daily weight. Subjective Date of service: 02/18/22 Interval history: off the floor this AM Objective - Vital Signs Vital signs: Vital Signs - 12hr 02/18/22 02/18/22 02/18/22 01:00 02:00 03:00 Temperature 98.6 F Pulse Rate 102 H 91 H 86 Respiratory 13 20 14 Rate Blood Pressure 144/38 137/33 118/27 O2 Sat by Pulse 97 94 95 Oximetry 02/18/22 02/18/22 02/18/22 04:00 04:15 05:00 Temperature Pulse Rate 116 H 104 H Respiratory 21 15 17 Rate Blood Pressure 113/93 135/40 O2 Sat by Pulse 96 94 Oximetry 02/18/22 02/18/22 02/18/22 06:00 07:00 09:00 Temperature 98.6 F Pulse Rate 97 H 89 94 H Respiratory 15 15 37 H Rate Blood Pressure 116/31 140/46 156/61 O2 Sat by Pulse 92 97 100 Oximetry 02/18/22 02/18/22 02/18/22 10:00 11:00 11:34 Temperature 98.4 F Pulse Rate Respiratory 18 Rate Blood Pressure 156/61 164/47 O2 Sat by Pulse 97 97 Oximetry - Lab 02/18/22 04:00 02/18/22 04:00 Most recent lab results Calcium 9.2 mg/dL (8.4-10.2) 02/18/22 04:00 Medications & Allergies - Medications Allergies/Adverse Reactions: Allergies promethazine HCl [From Phenergan] Adverse Reaction (Mild, Verified 09/07/13 10:51) Unknown PT STATES HE GETS ERECTION WITH PHENERGAN. HE STATES HE DOES NOT LIKE THIS MEDICATION. Home Medications: Home Medications Medication Instructions Recorded Confirmed Last Taken Type Cinacalcet HCl [Sensipar] 60 mg PO DAILY 09/06/13 09/06/13 09/05/13 History HYDROcodone/ACETAMINOPHEN 7.5 mg PO Q6HR PRN 09/06/13 09/06/13 09/05/13 History [Hydrocodon-Acetaminoph 7.5-325] Lanthanum Carbonate [Fosrenol] 1,000 mg PO DAILY 09/06/13 09/06/13 Unknown History NIFEdipine [NIFEdipine ER] 90 mg PO DAILY 09/06/13 09/06/13 09/07/13 08:00 History Sevelamer Carbonate [Renvela] 800 mg PO TIDWM 09/06/13 09/06/13 09/05/13 History HYDROcodone/APAP 7.5-325 [[place] 1 - 2 each PO Q6HR PRN #30 tablet 09/07/13 Unknown Rx 7.5/325 mg] Active Medications: Generic Name Dose Route Start Last Admin Trade Name Freq PRN Reason Stop Dose Admin Acetaminophen 650 mg 02/17/22 11:00 Acetaminophen 325 Mg Tab PO Q4H PRN Pain MILD(1-3)/Fever >100.5/HELLER Hydrocodone Bitart/Acetaminophen 2 each 02/17/22 11:00 02/18/22 04:15 Hydrocodone/Acetaminophen 5-325 Mg Tab PO 2 each Q6H PRN Administration Pain, Moderate (4-6) Cilostazol 100 mg 02/17/22 15:00 02/18/22 01:27 Cilostazol 100 Mg Tab PO Not Given BID BROOKE Clopidogrel Bisulfate 75 mg 02/18/22 10:00 Clopidogrel 75 Mg Tab PO QDAY BROOKE Dextrose 50 ml 02/17/22 17:24 Dextrose 50% In Water (25gm) 50 Ml Syringe IV Q30MIN PRN Hypoglycemia Protocol Famotidine 40 mg 02/17/22 16:00 02/17/22 18:02 Famotidine 20 Mg Tab PO 40 mg QDAY BROOKE Administration Heparin Sodium (Porcine) 5,000 unit 02/17/22 14:00 02/18/22 09:37 Heparin 5,000 Unit/1 Ml Vial SUB-Q Not Given TID BROOKE Hydromorphone HCl 0.5 mg 02/17/22 14:38 02/18/22 04:33 Hydromorphone 1 Mg/1 Ml Inj IV 0.5 mg Q2H PRN Administration Pain , Severe (7-10) Sodium Chloride 1,000 mls @ 100 mls/hr 02/17/22 12:00 02/18/22 01:33 Nacl 0.9% 1000 Ml IV 100 mls/hr DIRECT BROOKE Administration Cefazolin Sodium 2 gm in 20 mls @ 80 mls/hr 02/18/22 12:00 Ancef/Sterile Water 2 Gm/20 Ml IV 02/18/22 20:00 PREOP NR Protocol Ceftriaxone Sodium 2 gm in 100 mls @ 200 mls/hr 02/17/22 20:00 02/18/22 01:23 Rocephin/Ns 2 Gm/100 Ml IV 200 mls/hr Q24H BROOKE Administration Protocol Insulin Glargine 10 units 02/17/22 22:00 02/18/22 01:25 Insulin Glargine 100 Units/Ml SUB-Q Not Given QHS [facility]OO[facility] Insulin Human Lispro 0 unit 02/17/22 22:00 02/18/22 09:32 Insulin Lispro 100 Unit/Ml SUB-Q Not Given ACHS [facility] Protocol Insulin Human Regular 6 units 02/18/22 07:30 02/18/22 09:32 Insulin Regular, Human 100 Units/1 Ml SUB-Q Not Given AC [facility] Metoprolol Succinate 50 mg 02/18/22 10:00 Metoprolol Succinate Xl 50 Mg Tab PO QDAY [facility] Mycophenolate Mofetil 500 mg 02/17/22 22:00 02/18/22 01:24 Mycophenolate 500 Mg Tab PO Not Given BID [facility] Ondansetron HCl 4 mg 02/17/22 11:00 Ondansetron 4 Mg/2 Ml Inj IV Q8H PRN Nausea And Vomiting Prednisone 5 mg 02/17/22 12:00 02/17/22 17:41 Prednisone 5 Mg Tab PO Not Given QDAY [facility] Sodium Chloride 10 ml 02/17/22 22:00 02/18/22 01:27 Sodium Chloride 0.9% 10 Ml Flush Syringe IV 10 ml BID BROOKE Administration Sodium Chloride 10 ml 02/17/22 11:00 Sodium Chloride 0.9% 10 Ml Flush Syringe IV PRN PRN LINE FLUSH
[2022-02-18] MEDS ORDERED: LIDOCAINE (1%) 10 MG/1 ML VIAL 20 ML MDV ONE (12:55)
[2022-02-18] MEDS ORDERED: propofoL 200 MG/20 ML VIAL IV ONE (13:01)
[2022-02-18] MEDS ORDERED: LIDOCAINE MPF (2%) 20 MG/1 ML VIAL 5 ML ONE (13:01)
[2022-02-18] MEDS ORDERED: fentaNYL 100 MCG/2 ML INJ ONE ×2 (13:26→14:07)
[2022-02-18] MEDS ORDERED: SODIUM CHLORIDE 0.9% IRR 1,500 ML BOTTLE IR ONE (13:40)
[2022-02-18] MEDS ORDERED: HYDROmorphone 1 MG/1 ML INJ IV PRN (15:04)
[2022-02-18] MEDS ORDERED: ONDANSETRON 4 MG/2 ML INJ IV PRN (15:04)
--- NOTE | 2022-02-18 15:07 | Progress Note ---
Assessment and Plan Patient in OR during rounds. Obtain cultures, continue empiric antibiotics. We will see on rounds tomorrow. Subjective Date of service: 02/18/22 Interval history: Afebrile, normal. Blood cultures with 1 bottle gram-positive cocci Objective - Constitutional Vitals: Vital Signs Temp Pulse Resp BP Pulse Ox 98.4 F 101 H 28 H 206/62 99 02/18/22 12:00 02/18/22 12:00 02/18/22 12:00 02/18/22 12:00 02/18/22 12:00 Temperature -Last 24 Hours Temperature 98.4 F Temperature 98.4 F Temperature 98.4 F Temperature 98.5 F Temperature 98.6 F Temperature 98.6 F Temperature 98.7 F Temperature 98.6 F Temperature 97.5 F Temperature 97.5 F - Labs CBC & Chem 7: 02/18/22 04:00 02/18/22 04:00 Labs: Abnormal lab results 02/17/22 02/18/22 02/18/22 Range/Units 23:16 04:00 04:00 Hgb 11.5 L (11.8-15.2) gm/dl Hct 34.9 L (35.5-45.6) % [place] % (Auto) 8.6 H (0.0-7.3) % Lymph # (Auto) 1.1 L (1.2-5.4) K/mm3 Seg Neutrophils % 75.4 H (40.0-70.0) % Sodium 136 L (137-145) mmol/L Creatinine 0.6 L (0.8-1.3) mg/dL Glucose 205 H (75-100) mg/dL POC Glucose 203 H (70-105) mg/dL 02/18/22 02/18/22 Range/Units 06:24 11:58 Hgb (11.8-15.2) gm/dl Hct (35.5-45.6) % [place] % (Auto) (0.0-7.3) % Lymph # (Auto) (1.2-5.4) K/mm3 Seg Neutrophils % (40.0-70.0) % Sodium (137-145) mmol/L Creatinine (0.8-1.3) mg/dL Glucose (75-100) mg/dL POC Glucose 198 H 186 H (70-105) mg/dL
--- NOTE | 2022-02-18 15:33 | Operative Report ---
Operative Report Operative Report: Date of procedure: 02/18/2022 Pre-operative diagnosis: Peripheral Vascular Disease with Right Foot Gangrene Post-operative diagnosis: Same Procedure(s): 1. Right Transmetatarsal Amputation Surgeon: Isreal Ybarra MD Disc Inspector: None Anesthesia: General Endotracheal Anesthesia EBL: 100 mL Counts: Correct Complications: None Condition: Stable Findings: All remaining tissue was healthy and viable with excellent bleeding. The lateral foot gangrene was full thickness involving the skin however the underlying tissue was viable without overt signs of infection. The wound was closed without any tension. Specimen: Right forefoot was sent for cultures and pathology. Indication: The patient is a 66-year-old male with a history of peripheral vascular disease who developed gangrene of his lateral right foot and multiple toes. He underwent revascularization and now requires a transmetatarsal amputation with possible woound matrix placement versus Wound Vac placement. He was given the risk, benefits, and alternative procedures and consented to the procedure. Description of Procedure: The patient was brought to the operating room and laid in supine position. After general endotracheal anesthesia was achieved the right foot was prepped and draped in normal sterile fashion. A transverse incision was then created along the midportion of the metatarsals and carried distally to create a posterior flap. Electrocautery was used to take the dissection down to the metatarsals and the periosteum was then elevated on each metatarsal. The oscillating saw was then used to transect each metatarsal and then electrocautery was used to divide the remaining soft tissue and the specimen was passed off. Cautery was then used to achieve hemostasis within the wound and then a rasp was used to smooth each edge of the bone. The wound was then closed in 2 layers using 2-0 Vicryl to reapproximate the deep dermal layer and anastasia in the skin. The wound was then dressed with Xeroform gauze, fluffs, Kerlix, and an Terrance bandage. The patient tolerated procedure well. All sponge, needle, and instrument counts correct. The patient was taken to the recovery area in stable condition.
[2022-02-18] MEDS: METOPROLOL SUCCINATE XL 50 MG TAB PO SCH (16:49)
[2022-02-18] MEDS: predniSONE 5 MG TAB PO SCH (16:49)
[2022-02-18] MEDS: FAMOTIDINE 20 MG TAB PO SCH (16:49)
[2022-02-18] MEDS: CLOPIDOGREL 75 MG TAB PO SCH (16:49)
[2022-02-18] MEDS: ONDANSETRON 4 MG/2 ML INJ IV PRN (17:47)
--- NOTE | 2022-02-18 18:22 | Post Anesthesia Evaluation ---
- Post Anesthesia Evaluation Patient Participated: Yes Airway Patent: Yes Stable Respiratory Function: Yes Nausea/Vomiting: No Temp > 96.8F: Yes Pain Manageable: Yes Adequeate Hydration: Yes Anesthesia Complications: No Block Receding Appropriately: Not Applicable Patient on Ventilator: No
[2022-02-19] MEDS: HYDROmorphone 1 MG/1 ML INJ IV PRN ×7 (00:23→21:23)
[2022-02-19] MEDS: ONDANSETRON 4 MG/2 ML INJ IV PRN (04:01)
[2022-02-19] MEDS: METOCLOPRAMIDE 10 MG/2 ML INJ IV PRN (06:46)
[2022-02-19 07:01] LABS: Hemoglobin 11.7 gm/dl (11.8-15.2)
[2022-02-19 07:22] LABS: Blood Urea Nitrogen 9 mg/dL (9-20); Calcium 9.5 mg/dL (8.4-10.2); Hemolysis Index 2
[2022-02-19 07:25] LABS: BUN/Creatinine Ratio 13
[2022-02-19] MEDS: INSULIN LISPRO 100 UNIT/ML SUB-Q SCH ×4 (08:01→21:23)
[2022-02-19] MEDS: INSULIN REGULAR, HUMAN 100 UNITS/1 ML SUB-Q SCH ×3 (08:10→16:30)
[2022-02-19] MEDS: HEPARIN 5,000 UNIT/1 ML VIAL SUB-Q SCH ×3 (08:50→21:23)
[2022-02-19] MEDS: NIFEdipine XL 90 MG TAB PO SCH (09:03)
[2022-02-19] MEDS: MYCOPHENOLATE 500 MG TAB PO SCH ×2 (09:03→23:22)
[2022-02-19] MEDS: FAMOTIDINE 20 MG TAB PO SCH (09:03)
[2022-02-19] MEDS: predniSONE 5 MG TAB PO SCH (09:04)
[2022-02-19] MEDS: CILOSTAZOL 100 MG TAB PO SCH ×3 (09:04→23:22)
[2022-02-19] MEDS: CLOPIDOGREL 75 MG TAB PO SCH (09:04)
[2022-02-19] MEDS: METOPROLOL SUCCINATE XL 50 MG TAB PO SCH (09:04)
[2022-02-19] MEDS ORDERED: HYDROcodone/ACETAMINOPHEN 5-325 MG TAB PO PRN (11:02)
--- NOTE | 2022-02-19 11:08 | Progress Note ---
Assessment and Plan Assessment and plan: History of present illness: Patient is a 66-year-old male with history of gangrene, type 2 diabetes, hypertension, ESRD status post kidney transplant who presented with right great toe pain. He is followed by Dr. Arndt in the vascular surgery clinic for management of his gangrene. He was recently started on Rocephin for osteomyelitis 2 weeks ago. He reports waking up with 10 out of 10 throbbing pain this morning. He has never had similar pain in the past. He does have a PICC line in place. He reports taking all his medications and his gives him the Rocephin daily. Labs are notable for AST 57 ALT 182. All other labs and vitals were within normal limits. The patient was admitted for urgent vascular surgery intervention. Infectious disease and nephrology were consulted in the ED. Hospital Course: 02/18: Plan for TMA today with IR. Will follow up post op. 02/19: s/p TMA of rt foot. Pain medications adjusted for improved control. Glycemic control satisfactory. Will follow fitness sales consultant recommendations. Patient will need aggressive physical therapy while in hospital. CM aware of potential needs for OP rehab. Assessment and Plan: #Right lower extremity critical limb ischemia #Gangrene #PAD #Osteomyelitis -Plan for endovascular revascularization 02/18 by IR -s/p TMA of right foot on 02/18 -Continue Plavix and cilostazol -access PICC line - BCX: GPC 10/22 bottles, awaiting speciation. -ID consulted, assistance appreciated #Hypertension -currently controlled -will restart metoprolol succinate 50mg BID -goal SBP <160 #History of kidney transplant -transplanted 8 years ago -will continue prednisone and cellcept -Nephrology consulted, assistance appreciated -will avoid nephrotoxins #Insulin-dependent type 2 diabetes -patient takes levemir 18 QHS and novolog 16 units TID - SSI, lantus 10U qhs and novolog 6 units TID -will adjust according to POC glucose readings -goal BG 140-180 while inpatient #Obesity + 30 min preventative health counseling on for balanced diet /regular exercise, blood sugar optimization, risk factor modification, medication compliance in light of kidney transplant and critical limb ischemia. The high probability of a clinically significant, sudden or life threatening deterioration of the [multi] system(s) required my full and direct attention, intervention and personal management. The aggregate critical care time was [60] minutes. This time is in addition to time spent performing reported procedures but includes the following: [x] Data Review and interpretation [x] Patient assessment and monitoring of vital signs [x] Documentation [x] Medication orders and management History Interval history: S/p TMA. Patient resting at bedside, was present during encounter. Patient states that he still continues to have pain from the foot. I explained to the patient that this is to be expected but we would modify his pain regimen to hopefully give him longer lasting relief. Patient states that his appetite is improved today. He is no longer nauseous like he was yesterday in the post operative period. Hospitalist Physical - Physical exam Narrative exam: Physical Exam: VITAL SIGNS: Reviewed. GENERAL: Well-developed well-nourished. In no acute distress. HEENT: Normocephalic. Atraumatic. NECK: Supple. CHEST/LUNGS: CTAP on room air HEART/CARDIOVASCULAR: RRR. No murmur, rubs or gallops appreciated. ABDOMEN: +BS. NT/ND. SKIN: No rashes noted. NEURO: No focal motor deficit. Follows all commands. MUSCULOSKELETAL: No joint effusion EXTREMITIES: R foot bandaged, red, swollen and TTP. L foot with toe amputation. PSYCH: Cooperative. - Constitutional Vitals: Temp Pulse Resp BP Pulse Ox 98.1 F 103 H 12 130/83 93 02/19/22 04:04 02/19/22 09:04 02/19/22 07:11 02/19/22 07:01 02/19/22 07:01 General appearance: Present: no acute distress Results - Labs CBC & Chem 7: 02/19/22 06:30 02/19/22 06:30 Labs: Laboratory Last Values WBC 7.4 K/mm3 (4.5-11.0) 02/18/22 04:00 RBC 3.98 M/mm3 (3.65-5.03) 02/18/22 04:00 Hgb 11.7 gm/dl (11.8-15.2) L 02/19/22 06:30 Hct 36.0 % (35.5-45.6) 02/19/22 06:30 MCV 88 fl (84-94) 02/18/22 04:00 MCH 29 pg (28-32) 02/18/22 04:00 MCHC 33 % (32-34) 02/18/22 04:00 RDW 14.8 % (13.2-15.2) 02/18/22 04:00 Plt Count 141 K/mm3 (140-440) 02/18/22 04:00 Lymph % (Auto) 14.4 % (13.4-35.0) 02/18/22 04:00 [place] % (Auto) 8.6 % (0.0-7.3) H 02/18/22 04:00 Eos % (Auto) 1.3 % (0.0-4.3) 02/18/22 04:00 Baso % (Auto) 0.3 % (0.0-1.8) 02/18/22 04:00 Lymph # (Auto) 1.1 K/mm3 (1.2-5.4) L 02/18/22 04:00 [place] # (Auto) 0.6 K/mm3 (0.0-0.8) 02/18/22 04:00 Eos # (Auto) 0.1 K/mm3 (0.0-0.4) 02/18/22 04:00 Baso # (Auto) 0.0 K/mm3 (0.0-0.1) 02/18/22 04:00 Seg Neutrophils % 75.4 % (40.0-70.0) H 02/18/22 04:00 Seg Neutrophils # 5.6 K/mm3 (1.8-7.7) 02/18/22 04:00 PT 12.9 Sec. (12.2-14.9) 02/18/22 04:00 INR 0.88 (0.87-1.13) 02/18/22 04:00 APTT 29.5 Sec. (24.2-36.6) 02/17/22 08:36 Sodium 137 mmol/L (137-145) 02/19/22 06:30 Potassium 4.1 mmol/L (3.6-5.0) 02/19/22 06:30 Chloride 101.6 mmol/L (98-107) 02/19/22 06:30 Carbon Dioxide 25 mmol/L (22-30) 02/19/22 06:30 Anion Gap 15 mmol/L 02/19/22 06:30 BUN 9 mg/dL (9-20) 02/19/22 06:30 Creatinine 0.7 mg/dL (0.8-1.3) L 02/19/22 06:30 Estimated GFR > 60 ml/min 02/19/22 06:30 BUN/Creatinine Ratio 13 % 02/19/22 06:30 Glucose 130 mg/dL (75-100) H 02/19/22 06:30 POC Glucose 118 mg/dL (70-105) H 02/19/22 07:59 Lactic Acid 1.60 mmol/L (0.7-2.0) 02/17/22 08:36 Calcium 9.5 mg/dL (8.4-10.2) 02/19/22 06:30 Total Bilirubin 0.20 mg/dL (0.1-1.2) 02/17/22 08:14 AST 57 units/L (5-40) H 02/17/22 08:14 ALT 192 units/L (7-56) H 02/17/22 08:14 Alkaline Phosphatase 237 units/L (35-129) H 02/17/22 08:14 Total Protein 6.5 g/dL (6.3-8.2) 02/17/22 08:14 Albumin 3.8 g/dL (3.9-5) L 02/17/22 08:14 Albumin/Globulin Ratio 1.4 % 02/17/22 08:14 Urine Color Yellow (Yellow) 02/18/22 Unknown Urine Turbidity Clear (Clear) 02/18/22 Unknown Urine pH 5.0 (5.0-7.0) 02/18/22 Unknown Ur Specific [place] 1.024 (1.003-1.030) 02/18/22 Unknown Urine Protein 100 mg/dl mg/dL (Negative) 02/18/22 Unknown Urine Glucose (UA) 150 mg/dL (Negative) 02/18/22 Unknown Urine Ketones Neg mg/dL (Negative) 02/18/22 Unknown Urine Blood Sm (Negative) 02/18/22 Unknown Urine Nitrite Neg (Negative) 02/18/22 Unknown Urine Bilirubin Neg (Negative) 02/18/22 Unknown Urine Urobilinogen < 2.0 mg/dL (<2.0) 02/18/22 Unknown Ur Leukocyte Esterase Neg (Negative) 02/18/22 Unknown Urine WBC (Auto) 1.0 /HPF (0.0-6.0) 02/18/22 Unknown Urine RBC (Auto) 2.0 /HPF (0.0-6.0) 02/18/22 Unknown U Epithel Cells (Auto) 1.0 /HPF (0-13.0) 02/18/22 Unknown Urine Mucus Few /HPF 02/18/22 Unknown Blood Type O POSITIVE 02/17/22 08:36 Antibody Screen Negative 02/17/22 08:36 Microbiology: Microbiology 02/17/22 08:36 Peripheral/Venous Blood Culture - Preliminary NO GROWTH AFTER 24 HOURS 02/17/22 08:36 Peripheral/Venous Blood Culture - Preliminary Simmons/IV: Voiding Method Urinal Active Medications - Current Medications Current Medications: Generic Name Dose Route Start Last Admin Trade Name Freq PRN Reason Stop Dose Admin Acetaminophen 650 mg 02/17/22 11:00 Acetaminophen 325 Mg Tab PO Q4H PRN Pain MILD(1-3)/Fever >100.5/HELLER Hydrocodone Bitart/Acetaminophen 2 each 02/19/22 11:02 Hydrocodone/Acetaminophen 5-325 Mg Tab PO Q4H PRN Pain, Moderate (4-6) Cilostazol 100 mg 02/17/22 15:00 02/19/22 09:04 Cilostazol 100 Mg Tab PO 100 mg BID BROOKE Administration Clopidogrel Bisulfate 75 mg 02/18/22 10:00 02/19/22 09:04 Clopidogrel 75 Mg Tab PO 75 mg QDAY BROOKE Administration Dextrose 50 ml 02/17/22 17:24 Dextrose 50% In Water (25gm) 50 Ml Syringe IV Q30MIN PRN Hypoglycemia Protocol Famotidine 40 mg 02/17/22 16:00 02/19/22 09:03 Famotidine 20 Mg Tab PO 40 mg QDAY BROOKE Administration Heparin Sodium (Porcine) 5,000 unit 02/17/22 14:00 02/19/22 08:50 Heparin 5,000 Unit/1 Ml Vial SUB-Q 5,000 unit TID BROOKE Administration Hydromorphone HCl 1 mg 02/19/22 11:02 Hydromorphone 1 Mg/1 Ml Inj IV Q4H PRN Pain , Severe (7-10) Ceftriaxone Sodium 2 gm in 100 mls @ 200 mls/hr 02/17/22 20:00 02/18/22 20:51 Rocephin/Ns 2 Gm/100 Ml IV 200 mls/hr Q24H BROOKE Administration Protocol Insulin Glargine 10 units 02/17/22 22:00 02/18/22 21:18 Insulin Glargine 100 Units/Ml SUB-Q 10 units QHS BROOKE Administration Insulin Human Lispro 0 unit 02/17/22 22:00 02/19/22 08:01 Insulin Lispro 100 Unit/Ml SUB-Q Not Given ACHS BROOKE Protocol Insulin Human Regular 6 units 02/18/22 07:30 02/19/22 08:10 Insulin Regular, Human 100 Units/1 Ml SUB-Q 6 units AC BROOKE Administration Metoclopramide HCl 10 mg 02/19/22 06:44 02/19/22 06:46 Metoclopramide 10 Mg/2 Ml Inj IV 10 mg Q8H PRN Administration Nausea And Vomiting Metoprolol Succinate 50 mg 02/18/22 10:00 02/19/22 09:04 Metoprolol Succinate Xl 50 Mg Tab PO 50 mg QDAY BROOKE Administration Mycophenolate Mofetil 500 mg 02/17/22 22:00 02/19/22 09:03 Mycophenolate 500 Mg Tab PO 500 mg BID BROOKE Administration Nifedipine 90 mg 02/19/22 10:00 02/19/22 09:03 Nifedipine Xl 90 Mg Tab PO 90 mg DAILY BROOKE Administration Ondansetron HCl 4 mg 02/17/22 11:00 02/19/22 04:01 Ondansetron 4 Mg/2 Ml Inj IV 4 mg Q8H PRN Administration Nausea And Vomiting Prednisone 5 mg 02/17/22 12:00 02/19/22 09:04 Prednisone 5 Mg Tab PO 5 mg QDAY BROOKE Administration Sodium Chloride 10 ml 02/17/22 22:00 02/19/22 09:04 Sodium Chloride 0.9% 10 Ml Flush Syringe IV 10 ml BID BROOKE Administration Sodium Chloride 10 ml 02/17/22 11:00 Sodium Chloride 0.9% 10 Ml Flush Syringe IV PRN PRN LINE FLUSH
--- NOTE | 2022-02-19 11:39 | Progress Note ---
Assessment and Plan Assessment Gangrene of foot Diabetes mellitus Hypertension History of kidney transplant Plan: Renal labs reviewed. Serum creatinine 0.7. Renal function remains normal. Kidney replaced by transplant in 2014- On Cellcept 500 mg BID and Prednisone 5 mg po daily Renally dose medications Strict I&O's daily Obtain daily weights Avoid nephrotoxic agents Continue to monitor renal function Plan of care reviewed by Dr. Sears Subjective Date of service: 02/19/22 Principal diagnosis: Kidney transplant Interval history: Patient seen lying in bed. Awake and alert. Family at bedside. Objective - Vital Signs Vital signs: Vital Signs - 12hr 02/18/22 02/19/22 02/19/22 23:52 00:00 00:15 Temperature 96.4 F L Pulse Rate 89 86 93 H Pulse Rate [ 86 From Monitor] Respiratory 16 16 Rate Respiratory Rate [Right Foot] Blood Pressure 149/40 137/25 O2 Sat by Pulse 99 95 Oximetry 02/19/22 02/19/22 02/19/22 00:23 00:53 01:00 Temperature Pulse Rate 88 Pulse Rate [ From Monitor] Respiratory 17 12 16 Rate Respiratory Rate [Right Foot] Blood Pressure 130/40 O2 Sat by Pulse 95 Oximetry 02/19/22 02/19/22 02/19/22 02:00 03:00 04:00 Temperature Pulse Rate 84 87 Pulse Rate [ 87 From Monitor] Respiratory 15 13 11 L Rate Respiratory 12 Rate [Right Foot] Blood Pressure 147/70 157/40 O2 Sat by Pulse 95 97 96 Oximetry 02/19/22 02/19/22 02/19/22 04:01 04:04 04:15 Temperature 98.1 F Pulse Rate 87 88 Pulse Rate [ From Monitor] Respiratory 11 L Rate Respiratory Rate [Right Foot] Blood Pressure 164/43 O2 Sat by Pulse 96 Oximetry 02/19/22 02/19/22 02/19/22 04:31 05:00 06:00 Temperature Pulse Rate 93 H 86 Pulse Rate [ From Monitor] Respiratory 12 17 14 Rate Respiratory Rate [Right Foot] Blood Pressure 171/46 154/46 O2 Sat by Pulse 94 94 Oximetry 02/19/22 02/19/22 02/19/22 06:41 07:01 07:11 Temperature Pulse Rate 92 H Pulse Rate [ From Monitor] Respiratory 16 16 12 Rate Respiratory Rate [Right Foot] Blood Pressure 130/83 O2 Sat by Pulse 93 Oximetry 02/19/22 09:04 Temperature Pulse Rate 103 H Pulse Rate [ From Monitor] Respiratory Rate Respiratory Rate [Right Foot] Blood Pressure O2 Sat by Pulse Oximetry - General Appearance General appearance: well-developed, appears stated age EENT: ATNC, PERRL, hearing intact, vision intact Neck: no JVD, supple Respiratory: Present: Decreased Breath Sounds Cardiology: S1S2 Gastrointestinal: normoactive bowel sounds Integumentary: warm and dry Neurologic: alert and oriented x3 Musculoskeletal: other (Has gauze dressing to right foot) - Lab 02/19/22 06:30 02/19/22 06:30 Most recent lab results Calcium 9.5 mg/dL (8.4-10.2) 02/19/22 06:30 Medications & Allergies - Medications Allergies/Adverse Reactions: Allergies promethazine HCl [From Phenergan] Adverse Reaction (Mild, Verified 09/07/13 10:51) Unknown PT STATES HE GETS ERECTION WITH PHENERGAN. HE STATES HE DOES NOT LIKE THIS MEDICATION. Home Medications: Home Medications Medication Instructions Recorded Confirmed Last Taken Type Cinacalcet HCl [Sensipar] 60 mg PO DAILY 09/06/13 09/06/13 09/05/13 History HYDROcodone/ACETAMINOPHEN 7.5 mg PO Q6HR PRN 09/06/13 09/06/13 09/05/13 History [Hydrocodon-Acetaminoph 7.5-325] Lanthanum Carbonate [Fosrenol] 1,000 mg PO DAILY 09/06/13 09/06/13 Unknown History NIFEdipine [NIFEdipine ER] 90 mg PO DAILY 09/06/13 09/06/13 09/07/13 08:00 History Sevelamer Carbonate [Renvela] 800 mg PO TIDWM 09/06/13 09/06/13 09/05/13 History HYDROcodone/APAP 7.5-325 [[place] 1 - 2 each PO Q6HR PRN #30 tablet 09/07/13 Unknown Rx 7.5/325 mg] Active Medications: Generic Name Dose Route Start Last Admin Trade Name Freq PRN Reason Stop Dose Admin Acetaminophen 650 mg 02/17/22 11:00 Acetaminophen 325 Mg Tab PO Q4H PRN Pain MILD(1-3)/Fever >100.5/HELLER Hydrocodone Bitart/Acetaminophen 2 each 02/19/22 11:02 Hydrocodone/Acetaminophen 5-325 Mg Tab PO Q4H PRN Pain, Moderate (4-6) Cilostazol 100 mg 02/17/22 15:00 02/19/22 09:04 Cilostazol 100 Mg Tab PO 100 mg BID BROOKE Administration Clopidogrel Bisulfate 75 mg 02/18/22 10:00 02/19/22 09:04 Clopidogrel 75 Mg Tab PO 75 mg QDAY BROOKE Administration Dextrose 50 ml 02/17/22 17:24 Dextrose 50% In Water (25gm) 50 Ml Syringe IV Q30MIN PRN Hypoglycemia Protocol Famotidine 40 mg 02/17/22 16:00 02/19/22 09:03 Famotidine 20 Mg Tab PO 40 mg QDAY BROOKE Administration Heparin Sodium (Porcine) 5,000 unit 02/17/22 14:00 02/19/22 08:50 Heparin 5,000 Unit/1 Ml Vial SUB-Q 5,000 unit TID BROOKE Administration Hydromorphone HCl 1 mg 02/19/22 11:02 Hydromorphone 1 Mg/1 Ml Inj IV Q4H PRN Pain , Severe (7-10) Ceftriaxone Sodium 2 gm in 100 mls @ 200 mls/hr 02/17/22 20:00 02/18/22 20:51 Rocephin/Ns 2 Gm/100 Ml IV 200 mls/hr Q24H BROOKE Administration Protocol Insulin Glargine 10 units 02/17/22 22:00 02/18/22 21:18 Insulin Glargine 100 Units/Ml SUB-Q 10 units QHS BROOKE Administration Insulin Human Lispro 0 unit 02/17/22 22:00 02/19/22 08:01 Insulin Lispro 100 Unit/Ml SUB-Q Not Given ACHS [facility] Protocol Insulin Human Regular 6 units 02/18/22 07:30 02/19/22 08:10 Insulin Regular, Human 100 Units/1 Ml SUB-Q 6 units AC BROOKE Administration Metoclopramide HCl 10 mg 02/19/22 06:44 02/19/22 06:46 Metoclopramide 10 Mg/2 Ml Inj IV 10 mg Q8H PRN Administration Nausea And Vomiting Metoprolol Succinate 50 mg 02/18/22 10:00 02/19/22 09:04 Metoprolol Succinate Xl 50 Mg Tab PO 50 mg QDAY BROOKE Administration Mycophenolate Mofetil 500 mg 02/17/22 22:00 02/19/22 09:03 Mycophenolate 500 Mg Tab PO 500 mg BID BROOKE Administration Nifedipine 90 mg 02/19/22 10:00 02/19/22 09:03 Nifedipine Xl 90 Mg Tab PO 90 mg DAILY BROOKE Administration Ondansetron HCl 4 mg 02/17/22 11:00 02/19/22 04:01 Ondansetron 4 Mg/2 Ml Inj IV 4 mg Q8H PRN Administration Nausea And Vomiting Prednisone 5 mg 02/17/22 12:00 02/19/22 09:04 Prednisone 5 Mg Tab PO 5 mg QDAY BROOKE Administration Sodium Chloride 10 ml 02/17/22 22:00 02/19/22 09:04 Sodium Chloride 0.9% 10 Ml Flush Syringe IV 10 ml BID BROOKE Administration Sodium Chloride 10 ml 02/17/22 11:00 Sodium Chloride 0.9% 10 Ml Flush Syringe IV PRN PRN LINE FLUSH
--- NOTE | 2022-02-19 17:10 | Progress Note ---
Assessment and Plan Postoperative day #1 status post right transmetatarsal amputation. We will adjust the patient's pain medication so that he is taking oral meds to alleviate his pain. The dressing will be taken down on postoperative day #2. Subjective Date of service: 02/19/22 Principal diagnosis: Kidney transplant Interval history: The patient is complained of some pain in the right foot. He has no additional complaints at this time. Objective - Constitutional Vitals: Vital Signs - 12hr 02/19/22 02/19/22 02/19/22 06:00 06:41 07:01 Temperature Pulse Rate 86 92 H Pulse Rate [ From Monitor] Respiratory 14 16 16 Rate Respiratory Rate [Right Foot] Blood Pressure 154/46 130/83 O2 Sat by Pulse 94 93 Oximetry 02/19/22 02/19/22 02/19/22 07:11 08:00 08:04 Temperature 98 F Pulse Rate 93 H Pulse Rate [ 87 From Monitor] Respiratory 12 15 Rate Respiratory Rate [Right Foot] Blood Pressure 139/60 O2 Sat by Pulse 98 Oximetry 02/19/22 02/19/22 02/19/22 09:01 09:04 10:00 Temperature Pulse Rate 103 H 103 H 102 H Pulse Rate [ From Monitor] Respiratory 12 18 Rate Respiratory 12 Rate [Right Foot] Blood Pressure 130/28 120/94 O2 Sat by Pulse 99 98 Oximetry 02/19/22 02/19/22 02/19/22 11:01 12:00 13:01 Temperature 98.4 F Pulse Rate 115 H 93 H 103 H Pulse Rate [ 87 From Monitor] Respiratory 25 H 15 16 Rate Respiratory Rate [Right Foot] Blood Pressure 50/28 137/29 157/28 O2 Sat by Pulse 87 94 98 Oximetry General appearance: Present: no acute distress - Respiratory Respiratory effort: normal Extremities: abnormal (Right foot dressing is clean, dry, and intact) - Labs CBC & Chem 7: 02/19/22 06:30 02/19/22 06:30 Labs: Abnormal lab results 02/18/22 02/18/22 02/19/22 Range/Units 16:46 21:17 06:30 Hgb 11.7 L (11.8-15.2) gm/dl Creatinine (0.8-1.3) mg/dL Glucose (75-100) mg/dL POC Glucose 168 H 143 H (70-105) mg/dL 02/19/22 02/19/22 02/19/22 Range/Units 06:30 07:59 11:19 Hgb (11.8-15.2) gm/dl Creatinine 0.7 L (0.8-1.3) mg/dL Glucose 130 H (75-100) mg/dL POC Glucose 118 H 135 H (70-105) mg/dL Medications & Allergies - Medications Allergies/Adverse Reactions: Allergies promethazine HCl [From Phenergan] Adverse Reaction (Mild, Verified 09/07/13 10:51) Unknown PT STATES HE GETS ERECTION WITH PHENERGAN. HE STATES HE DOES NOT LIKE THIS MEDICATION. Home Medications: Home Medications Medication Instructions Recorded Confirmed Last Taken Type Cinacalcet HCl [Sensipar] 60 mg PO DAILY 09/06/13 09/06/13 09/05/13 History HYDROcodone/ACETAMINOPHEN 7.5 mg PO Q6HR PRN 09/06/13 09/06/13 09/05/13 History [Hydrocodon-Acetaminoph 7.5-325] Lanthanum Carbonate [Fosrenol] 1,000 mg PO DAILY 09/06/13 09/06/13 Unknown History NIFEdipine [NIFEdipine ER] 90 mg PO DAILY 09/06/13 09/06/13 09/07/13 08:00 History Sevelamer Carbonate [Renvela] 800 mg PO TIDWM 09/06/13 09/06/13 09/05/13 History HYDROcodone/APAP 7.5-325 [[place] 1 - 2 each PO Q6HR PRN #30 tablet 09/07/13 Unknown Rx 7.5/325 mg] Active Medications: Generic Name Dose Route Start Last Admin Trade Name Freq PRN Reason Stop Dose Admin Acetaminophen 650 mg 02/17/22 11:00 Acetaminophen 325 Mg Tab PO Q4H PRN Pain MILD(1-3)/Fever >100.5/HELLER Hydrocodone Bitart/Acetaminophen 2 each 02/19/22 11:02 Hydrocodone/Acetaminophen 5-325 Mg Tab PO Q4H PRN Pain, Moderate (4-6) Cilostazol 100 mg 02/17/22 15:00 02/19/22 09:04 Cilostazol 100 Mg Tab PO 100 mg BID BROOKE Administration Clopidogrel Bisulfate 75 mg 02/18/22 10:00 05/04/22 09:04 Clopidogrel 75 Mg Tab PO 75 mg QDAY BROOKE Administration Dextrose 50 ml 02/17/22 17:24 Dextrose 50% In Water (25gm) 50 Ml Syringe IV Q30MIN PRN Hypoglycemia Protocol Famotidine 40 mg 02/17/22 16:00 02/19/22 09:03 Famotidine 20 Mg Tab PO 40 mg QDAY BROOKE Administration Heparin Sodium (Porcine) 5,000 unit 02/17/22 14:00 02/19/22 13:30 Heparin 5,000 Unit/1 Ml Vial SUB-Q 5,000 unit TID BROOKE Administration Hydromorphone HCl 1 mg 02/19/22 11:02 02/19/22 15:11 Hydromorphone 1 Mg/1 Ml Inj IV 1 mg Q4H PRN Administration Pain , Severe (7-10) Ceftriaxone Sodium 2 gm in 100 mls @ 200 mls/hr 02/17/22 20:00 02/18/22 20:51 Rocephin/Ns 2 Gm/100 Ml IV 200 mls/hr Q24H BROOKE Administration Protocol Insulin Glargine 10 units 02/17/22 22:00 02/18/22 21:18 Insulin Glargine 100 Units/Ml SUB-Q 10 units QHS BROOKE Administration Insulin Human Lispro 0 unit 02/17/22 22:00 02/19/22 13:31 Insulin Lispro 100 Unit/Ml SUB-Q Not Given ACHS [facility] Protocol Insulin Human Regular 6 units 02/18/22 07:30 02/19/22 13:30 Insulin Regular, Human 100 Units/1 Ml SUB-Q 6 units AC BROOKE Administration Metoclopramide HCl 10 mg 02/19/22 06:44 02/19/22 06:46 Metoclopramide 10 Mg/2 Ml Inj IV 10 mg Q8H PRN Administration Nausea And Vomiting Metoprolol Succinate 50 mg 02/18/22 10:00 02/19/22 09:04 Metoprolol Succinate Xl 50 Mg Tab PO 50 mg QDAY BROOKE Administration Mycophenolate Mofetil 500 mg 02/17/22 22:00 02/19/22 09:03 Mycophenolate 500 Mg Tab PO 500 mg BID BROOKE Administration Nifedipine 90 mg 02/19/22 10:00 02/19/22 09:03 Nifedipine Xl 90 Mg Tab PO 90 mg DAILY BROOKE Administration Ondansetron HCl 4 mg 02/17/22 11:00 02/19/22 04:01 Ondansetron 4 Mg/2 Ml Inj IV 4 mg Q8H PRN Administration Nausea And Vomiting Prednisone 5 mg 02/17/22 12:00 02/19/22 09:04 Prednisone 5 Mg Tab PO 5 mg QDAY BROOKE Administration Sodium Chloride 10 ml 02/17/22 22:00 02/19/22 09:04 Sodium Chloride 0.9% 10 Ml Flush Syringe IV 10 ml BID BROOKE Administration Sodium Chloride 10 ml 02/17/22 11:00 Sodium Chloride 0.9% 10 Ml Flush Syringe IV PRN PRN LINE FLUSH
[2022-02-19] MEDS ORDERED: oxyCODONE /ACETAMINOPHEN 5-325MG TAB PO PRN (18:00)
--- NOTE | 2022-02-19 19:03 | Consultation ---
History of Present Illness - Reason for Consult Consult date: 02/19/22 - History of Present Illness 66-year-old man past medical history gangrene, type 2 diabetes, hypertension, ESRD with a kidney transplant presented to hospital complaining of right great toe pain. He is known to Dr. Arndt in vascular surgery clinic due to his gangrene. As an outpatient he was noted to have osteomyelitis and was started on ceftriaxone. He was admitted with a PICC line in place. He was taken to the OR today for a right transmetatarsal amputation. Afebrile since admission with a white count of 7.4. Normal renal function. Blood culture gram-positive cocci 1 out of 4 bottles. Imaging personally reviewed: None Review of Systems: Bold if positive, otherwise negative General: fevers, chills, rigors HEENT: visual disturbance, diplopia, eye pain Respiratory: cough, sputum, hemoptysis, shortness of breath Cardiovascular: chest pain, syncope Gastrointestinal: nausea, vomiting, diarrhea, abdominal pain Genitourinary: dysuria, hematuria, flank pain Musculoskeletal: neck pain, back pain, joint pain, edema Neurologic: headaches, seizures Hematologic: easy bruising or bleeding Endocrine: night sweats, acute weight loss Skin: rash, jaundice, redness Psychiatric: suicidal, homicidal ideation Past History Past Medical History: diabetes, ESRD, hypertension, other (LLE limb ischemia) Past Surgical History: appendectomy, Other (kidney transplant, eye surgery) Social history: no significant social history. denies: smoking, alcohol abuse Family history: no significant family history Medications and Allergies Allergies Allergy/AdvReac Type Severity Reaction Status Date / Time promethazine HCl AdvReac Mild Unknown Verified 09/07/13 10:51 [From Phenergan] Home Medications Medication Instructions Recorded Confirmed Last Taken Type Cinacalcet HCl [Sensipar] 60 mg PO DAILY 09/06/13 09/06/13 09/05/13 History HYDROcodone/ACETAMINOPHEN 7.5 mg PO Q6HR PRN 09/06/13 09/06/13 09/05/13 History [Hydrocodon-Acetaminoph 7.5-325] Lanthanum Carbonate [Fosrenol] 1,000 mg PO DAILY 09/06/13 09/06/13 Unknown History NIFEdipine [NIFEdipine ER] 90 mg PO DAILY 09/06/13 09/06/13 09/07/13 08:00 History Sevelamer Carbonate [Renvela] 800 mg PO TIDWM 09/06/13 09/06/13 09/05/13 History HYDROcodone/APAP 7.5-325 [[place] 1 - 2 each PO Q6HR PRN #30 tablet 09/07/13 Unknown Rx 7.5/325 mg] Active Meds: Active Medications Acetaminophen (Acetaminophen 325 Mg Tab) 650 mg PO Q4H PRN PRN Reason: Pain MILD(1-3)/Fever >100.5/HELLER Cilostazol (Cilostazol 100 Mg Tab) 100 mg PO BID [facility] Last Admin: 02/19/22 09:04 Dose: 100 mg Clopidogrel Bisulfate (Clopidogrel 75 Mg Tab) 75 mg PO QDAY [facility] Last Admin: 02/19/22 09:04 Dose: 75 mg Dextrose (Dextrose 50% In Water (25gm) 50 Ml Syringe) 50 ml IV Q30MIN PRN; Protocol PRN Reason: Hypoglycemia Famotidine (Famotidine 20 Mg Tab) 40 mg PO QDAY [facility] Last Admin: 02/19/22 09:03 Dose: 40 mg Heparin Sodium (Porcine) (Heparin 5,000 Unit/1 Ml Vial) 5,000 unit SUB-Q TID [facility] Last Admin: 02/19/22 13:30 Dose: 5,000 unit Hydromorphone HCl (Hydromorphone 1 Mg/1 Ml Inj) 1 mg IV Q4H PRN PRN Reason: Pain , Severe (7-10) Last Admin: 02/19/22 15:11 Dose: 1 mg Ceftriaxone Sodium (Rocephin/Ns 2 Gm/100 Ml) 2 gm in 100 mls @ 200 mls/hr IV Q24H [facility]; Protocol Last Admin: 02/18/22 20:51 Dose: 200 mls/hr Insulin Glargine (Insulin Glargine 100 Units/Ml) 10 units SUB-Q QHS [facility] Last Admin: 02/18/22 21:18 Dose: 10 units Insulin Human Lispro (Insulin Lispro 100 Unit/Ml) 0 unit SUB-Q ACHS [facility]; Protocol Last Admin: 02/19/22 16:30 Dose: Not Given Insulin Human Regular (Insulin Regular, Human 100 Units/1 Ml) 6 units SUB-Q AC [facility] Last Admin: 02/19/22 13:30 Dose: 6 units Metoclopramide HCl (Metoclopramide 10 Mg/2 Ml Inj) 10 mg IV Q8H PRN PRN Reason: Nausea And Vomiting Last Admin: 02/19/22 06:46 Dose: 10 mg Metoprolol Succinate (Metoprolol Succinate Xl 50 Mg Tab) 50 mg PO QDAY [facility] Last Admin: 02/19/22 09:04 Dose: 50 mg Mycophenolate Mofetil (Mycophenolate 500 Mg Tab) 500 mg PO BID [facility] Last Admin: 02/19/22 09:03 Dose: 500 mg Nifedipine (Nifedipine Xl 90 Mg Tab) 90 mg PO DAILY [facility] Last Admin: 02/19/22 09:03 Dose: 90 mg Ondansetron HCl (Ondansetron 4 Mg/2 Ml Inj) 4 mg IV Q8H PRN PRN Reason: Nausea And Vomiting Last Admin: 02/19/22 04:01 Dose: 4 mg Oxycodone/Acetaminophen (Oxycodone /Acetaminophen 5-325mg Tab) 2 tab PO Q4H PRN PRN Reason: Pain, Moderate (4-6) Last Admin: 02/19/22 18:12 Dose: 2 tab Prednisone (Prednisone 5 Mg Tab) 5 mg PO QDAY [facility] Last Admin: 02/19/22 09:04 Dose: 5 mg Sodium Chloride (Sodium Chloride 0.9% 10 Ml Flush Syringe) 10 ml IV BID [facility] Last Admin: 02/19/22 09:04 Dose: 10 ml Sodium Chloride (Sodium Chloride 0.9% 10 Ml Flush Syringe) 10 ml IV PRN PRN PRN Reason: LINE FLUSH Physical Examination - Physical Exam Narrative exam: Physical Exam: Constitutional: Alert, cooperative. No acute distress Head, Ears, Nose: Normocephalic, atraumatic. External ears, nose normal Eyes: Conjunctivae/corneas clear. No icterus. No ptosis. Neck: Supple, no meningeal signs Oral: dentition fair, no thrush Cardiovascular: S1, S2 normal. Respiratory: Good air entry, clear to auscultation bilaterally GI: Soft, non-tender; bowel sounds normal. No peritoneal signs. Musculoskeletal: Right transmetatarsal amputation Skin: No rash or abscess Hem/Lymphatic: No palpable cervical or supraclavicular nodes. No lymphangitis Psych: Mood ok. Affect normal Neurological: Awake, alert, oriented. No gross abnormality - Constitutional Vitals: Vital Signs Temp Pulse Resp BP Pulse Ox 98.4 F 103 H 16 157/28 98 02/19/22 12:00 02/19/22 13:01 02/19/22 13:01 02/19/22 13:01 02/19/22 13:01 Temperature -Last 24 Hours Temperature 98.4 F Temperature 98 F Temperature 98.1 F Temperature 96.4 F Temperature 97.6 F Results - Labs CBC & Chem 7: 02/19/22 06:30 02/19/22 06:30 Labs: Abnormal lab results 02/18/22 02/18/22 02/19/22 Range/Units 16:46 21:17 06:30 Hgb 11.7 L (11.8-15.2) gm/dl Creatinine (0.8-1.3) mg/dL Glucose (75-100) mg/dL POC Glucose 168 H 143 H (70-105) mg/dL 02/19/22 02/19/22 02/19/22 Range/Units 06:30 07:59 11:19 Hgb (11.8-15.2) gm/dl Creatinine 0.7 L (0.8-1.3) mg/dL Glucose 130 H (75-100) mg/dL POC Glucose 118 H 135 H (70-105) mg/dL Assessment and Plan Cultures: Blood culture no growth so far A/P: 66-year-old man past medical history gangrene, type 2 diabetes, hypertension, ESRD with a kidney transplant now with: #Right foot gangrene: Now status post TMA. Cultures are pending. #Diabetes: tight glycemic control for best outcomes. #Immunocompromised host with kidney transplant: Good renal function, continue home immunosuppression Recs: -Continue ceftriaxone alone for now given the setting of skin transplant -Follow-up cultures from surgery -Follow-up pathology to determine if surgical cure obtained Thank you for the consult, we will continue to follow. MD Yojana Path[facility] O: [phone] F: [phone]
[2022-02-19] MEDS: cefTRIAXone/NS 2 GM/100 ML 2 GM/100 ML BAG IV SCH (21:21)
[2022-02-19] MEDS: INSULIN GLARGINE 100 UNITS/ML SUB-Q SCH (21:23)
--- NOTE | 2022-02-20 07:22 | Progress Note ---
Assessment and Plan Assessment and plan: History of present illness: Patient is a 66-year-old male with history of gangrene, type 2 diabetes, hypertension, ESRD status post kidney transplant who presented with right great toe pain. He is followed by Dr. Arndt in the vascular surgery clinic for management of his gangrene. He was recently started on Rocephin for osteomyelitis 2 weeks ago. He reports waking up with 10 out of 10 throbbing pain this morning. He has never had similar pain in the past. He does have a PICC line in place. He reports taking all his medications and his gives him the Rocephin daily. Labs are notable for AST 57 ALT 182. All other labs and vitals were within normal limits. The patient was admitted for urgent vascular surgery intervention. Infectious disease and nephrology were consulted in the ED. Hospital Course: 02/18: Plan for TMA today with IR. Will follow up post op. 02/19: s/p TMA of rt foot. Pain medications adjusted for improved control. Glycemic control satisfactory. Will follow reporting process consultant recommendations. Patient will need aggressive physical therapy while in hospital. CM aware of potential needs for OP rehab. 02/20: Doing well on encounter. Has not required pain medication and states his foot no longer hurts. Scale back pain meds to percocet 5/325 mg q8 and morphine 1mg q6 hr prn.. D/w vascular surgery, will complete dressing change today and okay with discharge tomorrow. Patient to continue ceftriaxone IV per infectious disease. Anticipate d/c in next 24 hrs. Assessment and Plan: #Right foot critical limb ischemia #Gangrene #PAD #Osteomyelitis -Plan for endovascular revascularization 02/18 by IR -s/p TMA of right foot on 02/18 -Continue Plavix and cilostazol -access PICC line - BCX: GPC 10/22 bottles, awaiting speciation. -ID consulted, assistance appreciated #Hypertension -currently controlled -will restart metoprolol succinate 50mg BID -goal SBP <160 #History of kidney transplant -transplanted 8 years ago -will continue prednisone and cellcept -Nephrology consulted, assistance appreciated -will avoid nephrotoxins #Insulin-dependent type 2 diabetes -patient takes levemir 18 QHS and novolog 16 units TID - SSI, lantus 10U qhs and novolog 6 units TID -will adjust according to POC glucose readings -goal BG 140-180 while inpatient #Obesity + 30 min preventative health counseling on for balanced diet /regular exercise, blood sugar optimization, risk factor modification, medication compliance in light of kidney transplant and critical limb ischemia. The high probability of a clinically significant, sudden or life threatening deterioration of the [multi] system(s) required my full and direct attention, intervention and personal management. The aggregate critical care time was [60] minutes. This time is in addition to time spent performing reported procedures but includes the following: [x] Data Review and interpretation [x] Patient assessment and monitoring of vital signs [x] Documentation [x] Medication orders and management History Interval history: No complaints .Resting comfortably. States he is no longer in pain. He states he has not required pain medication yet this AM. Hospitalist Physical - Physical exam Narrative exam: Physical Exam: VITAL SIGNS: Reviewed. GENERAL: Well-developed well-nourished. In no acute distress. HEENT: Normocephalic. Atraumatic. NECK: Supple. CHEST/LUNGS: CTAP on room air HEART/CARDIOVASCULAR: RRR. No murmur, rubs or gallops appreciated. ABDOMEN: +BS. NT/ND. SKIN: No rashes noted. NEURO: No focal motor deficit. Follows all commands. MUSCULOSKELETAL: No joint effusion EXTREMITIES: R foot bandaged, red, swollen and TTP. L foot with toe amputation. PSYCH: Cooperative. - Constitutional Vitals: Temp Pulse Resp BP Pulse Ox 98.7 F 103 H 14 180/52 98 02/20/22 05:32 02/20/22 05:32 02/20/22 05:32 02/20/22 05:32 02/20/22 05:32 General appearance: Present: no acute distress Results - Labs CBC & Chem 7: 02/20/22 07:53 02/20/22 07:53 Labs: Laboratory Last Values WBC 7.4 K/mm3 (4.5-11.0) 02/18/22 04:00 RBC 3.98 M/mm3 (3.65-5.03) 02/18/22 04:00 Hgb 11.7 gm/dl (11.8-15.2) L 02/19/22 06:30 Hct 36.0 % (35.5-45.6) 02/19/22 06:30 MCV 88 fl (84-94) 02/18/22 04:00 MCH 29 pg (28-32) 02/18/22 04:00 MCHC 33 % (32-34) 02/18/22 04:00 RDW 14.8 % (13.2-15.2) 02/18/22 04:00 Plt Count 141 K/mm3 (140-440) 02/18/22 04:00 Lymph % (Auto) 14.4 % (13.4-35.0) 02/18/22 04:00 [place] % (Auto) 8.6 % (0.0-7.3) H 02/18/22 04:00 Eos % (Auto) 1.3 % (0.0-4.3) 02/18/22 04:00 Baso % (Auto) 0.3 % (0.0-1.8) 02/18/22 04:00 Lymph # (Auto) 1.1 K/mm3 (1.2-5.4) L 02/18/22 04:00 [place] # (Auto) 0.6 K/mm3 (0.0-0.8) 02/18/22 04:00 Eos # (Auto) 0.1 K/mm3 (0.0-0.4) 02/18/22 04:00 Baso # (Auto) 0.0 K/mm3 (0.0-0.1) 02/18/22 04:00 Seg Neutrophils % 75.4 % (40.0-70.0) H 02/18/22 04:00 Seg Neutrophils # 5.6 K/mm3 (1.8-7.7) 02/18/22 04:00 PT 12.9 Sec. (12.2-14.9) 02/18/22 04:00 INR 0.88 (0.87-1.13) 02/18/22 04:00 APTT 29.5 Sec. (24.2-36.6) 02/17/22 08:36 Sodium 137 mmol/L (137-145) 02/19/22 06:30 Potassium 4.1 mmol/L (3.6-5.0) 02/19/22 06:30 Chloride 101.6 mmol/L (98-107) 02/19/22 06:30 Carbon Dioxide 25 mmol/L (22-30) 02/19/22 06:30 Anion Gap 15 mmol/L 02/19/22 06:30 BUN 9 mg/dL (9-20) 02/19/22 06:30 Creatinine 0.7 mg/dL (0.8-1.3) L 02/19/22 06:30 Estimated GFR > 60 ml/min 02/19/22 06:30 BUN/Creatinine Ratio 13 % 02/19/22 06:30 Glucose 130 mg/dL (75-100) H 02/19/22 06:30 POC Glucose 102 mg/dL (70-105) 02/19/22 23:25 Lactic Acid 1.60 mmol/L (0.7-2.0) 02/17/22 08:36 Calcium 9.5 mg/dL (8.4-10.2) 02/19/22 06:30 Total Bilirubin 0.20 mg/dL (0.1-1.2) 02/17/22 08:14 AST 57 units/L (5-40) H 02/17/22 08:14 ALT 192 units/L (7-56) H 02/17/22 08:14 Alkaline Phosphatase 237 units/L (35-129) H 02/17/22 08:14 Total Protein 6.5 g/dL (6.3-8.2) 02/17/22 08:14 Albumin 3.8 g/dL (3.9-5) L 02/17/22 08:14 Albumin/Globulin Ratio 1.4 % 02/17/22 08:14 Urine Color Yellow (Yellow) 02/18/22 Unknown Urine Turbidity Clear (Clear) 02/18/22 Unknown Urine pH 5.0 (5.0-7.0) 02/18/22 Unknown Ur Specific [place] 1.024 (1.003-1.030) 02/18/22 Unknown Urine Protein 100 mg/dl mg/dL (Negative) 02/18/22 Unknown Urine Glucose (UA) 150 mg/dL (Negative) 02/18/22 Unknown Urine Ketones Neg mg/dL (Negative) 02/18/22 Unknown Urine Blood Sm (Negative) 02/18/22 Unknown Urine Nitrite Neg (Negative) 02/18/22 Unknown Urine Bilirubin Neg (Negative) 02/18/22 Unknown Urine Urobilinogen < 2.0 mg/dL (<2.0) 02/18/22 Unknown Ur Leukocyte Esterase Neg (Negative) 02/18/22 Unknown Urine WBC (Auto) 1.0 /HPF (0.0-6.0) 02/18/22 Unknown Urine RBC (Auto) 2.0 /HPF (0.0-6.0) 02/18/22 Unknown U Epithel Cells (Auto) 1.0 /HPF (0-13.0) 02/18/22 Unknown Urine Mucus Few /HPF 02/18/22 Unknown Blood Type O POSITIVE 02/17/22 08:36 Antibody Screen Negative 02/17/22 08:36 Microbiology: Microbiology 02/17/22 08:36 Peripheral/Venous Blood Culture - Preliminary NO GROWTH AFTER 48 HOURS Simmons/IV: Voiding Method Urinal Active Medications - Current Medications Current Medications: Generic Name Dose Route Start Last Admin Trade Name Freq PRN Reason Stop Dose Admin Acetaminophen 650 mg 02/17/22 11:00 Acetaminophen 325 Mg Tab PO Q4H PRN Pain MILD(1-3)/Fever >100.5/HELLER Cilostazol 100 mg 02/17/22 15:00 02/19/22 23:22 Cilostazol 100 Mg Tab PO 100 mg BID [facility] Administration Clopidogrel Bisulfate 75 mg 02/18/22 10:00 02/19/22 09:04 Clopidogrel 75 Mg Tab PO 75 mg QDAY [facility] Administration Dextrose 50 ml 02/17/22 17:24 Dextrose 50% In Water (25gm) 50 Ml Syringe IV Q30MIN PRN Hypoglycemia Protocol Famotidine 40 mg 02/17/22 16:00 02/19/22 09:03 Famotidine 20 Mg Tab PO 40 mg QDAY [facility] Administration Heparin Sodium (Porcine) 5,000 unit 02/17/22 14:00 02/19/22 21:23 Heparin 5,000 Unit/1 Ml Vial SUB-Q 5,000 unit TID [facility] Administration Hydromorphone HCl 1 mg 02/19/22 11:02 02/19/22 21:23 Hydromorphone 1 Mg/1 Ml Inj IV 1 mg Q4H PRN Administration Pain , Severe (7-10) Ceftriaxone Sodium 2 gm in 100 mls @ 200 mls/hr 02/17/22 20:00 02/19/22 21:21 Rocephin/Ns 2 Gm/100 Ml IV 200 mls/hr Q24H [facility] Administration Protocol Insulin Glargine 10 units 05/02/22 22:00 02/19/22 21:23 Insulin Glargine 100 Units/Ml SUB-Q Not Given QHS [facility] Insulin Human Lispro 0 unit 02/17/22 22:00 02/19/22 21:23 Insulin Lispro 100 Unit/Ml SUB-Q Not Given ACHS [facility] Protocol Insulin Human Regular 6 units 02/18/22 07:30 02/19/22 16:30 Insulin Regular, Human 100 Units/1 Ml SUB-Q 6 units AC [facility] Administration Metoclopramide HCl 10 mg 02/19/22 06:44 02/19/22 06:46 Metoclopramide 10 Mg/2 Ml Inj IV 10 mg Q8H PRN Administration Nausea And Vomiting Metoprolol Succinate 50 mg 02/18/22 10:00 02/19/22 09:04 Metoprolol Succinate Xl 50 Mg Tab PO 50 mg QDAY [facility] Administration Mycophenolate Mofetil 500 mg 02/17/22 22:00 02/19/22 23:22 Mycophenolate 500 Mg Tab PO 500 mg BID [facility] Administration Nifedipine 90 mg 02/19/22 10:00 02/19/22 09:03 Nifedipine Xl 90 Mg Tab PO 90 mg DAILY [facility] Administration Ondansetron HCl 4 mg 02/17/22 11:00 02/19/22 04:01 Ondansetron 4 Mg/2 Ml Inj IV 4 mg Q8H PRN Administration Nausea And Vomiting Oxycodone/Acetaminophen 2 tab 02/19/22 18:00 02/19/22 18:12 Oxycodone /Acetaminophen 5-325mg Tab PO 2 tab Q4H PRN Administration Pain, Moderate (4-6) Prednisone 5 mg 02/17/22 12:00 02/19/22 09:04 Prednisone 5 Mg Tab PO 5 mg QDAY [facility] Administration Sodium Chloride 10 ml 02/17/22 22:00 02/19/22 21:24 Sodium Chloride 0.9% 10 Ml Flush Syringe IV 10 ml BID [facility] Administration Sodium Chloride 10 ml 02/17/22 11:00 Sodium Chloride 0.9% 10 Ml Flush Syringe IV PRN PRN LINE FLUSH
[2022-02-20] MEDS: INSULIN REGULAR, HUMAN 100 UNITS/1 ML SUB-Q SCH ×3 (07:30→16:30)
[2022-02-20] MEDS: INSULIN LISPRO 100 UNIT/ML SUB-Q SCH ×4 (07:30→22:23)
[2022-02-20] MEDS: HEPARIN 5,000 UNIT/1 ML VIAL SUB-Q SCH ×3 (08:00→20:58)
[2022-02-20 08:43] LABS: Basophils % (Auto) 0.4 % (0.0-1.8); Eosinophils # (Auto) 0.1 K/mm3 (0.0-0.4); Eosinophils % (Auto) 0.8 % (0.0-4.3); Hematocrit 34.4 % (35.5-45.6); Hemoglobin 11.5 gm/dl (11.8-15.2); Mean Corpuscular HGB Conc 34 % (32-34); Mean Corpuscular Volume 87 fl (84-94); Monocytes # (Auto) 0.9 K/mm3 (0.0-0.8); Monocytes % (Auto) 8.1 % (0.0-7.3); Platelet Count 160 K/mm3 (140-440); Red Blood Count 3.95 M/mm3 (3.65-5.03); Red Cell Distribution Width 14.9 % (13.2-15.2)
--- NOTE | 2022-02-20 09:07 | Progress Note ---
Assessment and Plan Diabetes mellitus Hypertension History of kidney transplant Plan: labs are pending this AM Kidney replaced by transplant in 2014- On Cellcept 500 mg BID and Prednisone 5 mg po daily Renally dose medications Strict I&O's daily Obtain daily weights Avoid nephrotoxic agents Continue to monitor renal function Subjective Date of service: 02/20/22 Principal diagnosis: Kidney transplant Interval history: No overnight events Objective - Vital Signs Vital signs: Vital Signs - 12hr 02/19/22 02/20/22 02/20/22 22:32 05:15 05:32 Temperature 98.8 F 98.7 F Pulse Rate 83 103 H Pulse Rate [ 87 From Monitor] Respiratory 20 11 L 14 Rate Blood Pressure 141/33 Blood Pressure 180/52 [Right] O2 Sat by Pulse 99 96 98 Oximetry - Lab 02/20/22 07:53 02/19/22 06:30 Most recent lab results Calcium 9.5 mg/dL (8.4-10.2) 02/19/22 06:30 Medications & Allergies - Medications Allergies/Adverse Reactions: Allergies promethazine HCl [From Phenergan] Adverse Reaction (Mild, Verified 09/07/13 10:51) Unknown PT STATES HE GETS ERECTION WITH PHENERGAN. HE STATES HE DOES NOT LIKE THIS MEDICATION. Home Medications: Home Medications Medication Instructions Recorded Confirmed Last Taken Type Cinacalcet HCl [Sensipar] 60 mg PO DAILY 09/06/13 09/06/13 09/05/13 History HYDROcodone/ACETAMINOPHEN 7.5 mg PO Q6HR PRN 09/06/13 09/06/13 09/05/13 History [Hydrocodon-Acetaminoph 7.5-325] Lanthanum Carbonate [Fosrenol] 1,000 mg PO DAILY 09/06/13 09/06/13 Unknown History NIFEdipine [NIFEdipine ER] 90 mg PO DAILY 09/06/13 09/06/13 09/07/13 08:00 History Sevelamer Carbonate [Renvela] 800 mg PO TIDWM 09/06/13 09/06/13 09/05/13 History HYDROcodone/APAP 7.5-325 [[place] 1 - 2 each PO Q6HR PRN #30 tablet 09/07/13 Unknown Rx 7.5/325 mg] Active Medications: Generic Name Dose Route Start Last Admin Trade Name Freq PRN Reason Stop Dose Admin Acetaminophen 650 mg 02/17/22 11:00 Acetaminophen 325 Mg Tab PO Q4H PRN Pain MILD(1-3)/Fever >100.5/HELLER Cilostazol 100 mg 02/17/22 15:00 02/19/22 23:22 Cilostazol 100 Mg Tab PO 100 mg BID [facility] Administration Clopidogrel Bisulfate 75 mg 02/18/22 10:00 02/19/22 09:04 Clopidogrel 75 Mg Tab PO 75 mg QDAY [facility] Administration Dextrose 50 ml 02/17/22 17:24 Dextrose 50% In Water (25gm) 50 Ml Syringe IV Q30MIN PRN Hypoglycemia Protocol Famotidine 40 mg 02/17/22 16:00 02/19/22 09:03 Famotidine 20 Mg Tab PO 40 mg QDAY [facility] Administration Heparin Sodium (Porcine) 5,000 unit 02/17/22 14:00 02/20/22 08:00 Heparin 5,000 Unit/1 Ml Vial SUB-Q 5,000 unit TID [facility] Administration Hydromorphone HCl 1 mg 02/19/22 11:02 02/19/22 21:23 Hydromorphone 1 Mg/1 Ml Inj IV 1 mg Q4H PRN Administration Pain , Severe (7-10) Ceftriaxone Sodium 2 gm in 100 mls @ 200 mls/hr 02/17/22 20:00 02/19/22 21:21 Rocephin/Ns 2 Gm/100 Ml IV 200 mls/hr Q24H [facility] Administration Protocol Insulin Glargine 10 units 02/17/22 22:00 02/19/22 21:23 Insulin Glargine 100 Units/Ml SUB-Q Not Given QHS [facility] Insulin Human Lispro 0 unit 02/17/22 22:00 02/20/22 07:30 Insulin Lispro 100 Unit/Ml SUB-Q Not Given ACHS [facility] Protocol Insulin Human Regular 6 units 02/18/22 07:30 02/20/22 07:30 Insulin Regular, Human 100 Units/1 Ml SUB-Q 6 units AC [facility] Administration Metoclopramide HCl 10 mg 02/19/22 06:44 02/19/22 06:46 Metoclopramide 10 Mg/2 Ml Inj IV 10 mg Q8H PRN Administration Nausea And Vomiting Metoprolol Succinate 50 mg 02/18/22 10:00 02/19/22 09:04 Metoprolol Succinate Xl 50 Mg Tab PO 50 mg QDAY [facility] Administration Mycophenolate Mofetil 500 mg 02/17/22 22:00 02/19/22 23:22 Mycophenolate 500 Mg Tab PO 500 mg BID [facility] Administration Nifedipine 90 mg 02/19/22 10:00 02/19/22 09:03 Nifedipine Xl 90 Mg Tab PO 90 mg DAILY [facility] Administration Ondansetron HCl 4 mg 02/17/22 11:00 02/19/22 04:01 Ondansetron 4 Mg/2 Ml Inj IV 4 mg Q8H PRN Administration Nausea And Vomiting Oxycodone/Acetaminophen 2 tab 02/19/22 18:00 02/19/22 18:12 Oxycodone /Acetaminophen 5-325mg Tab PO 2 tab Q4H PRN Administration Pain, Moderate (4-6) Prednisone 5 mg 02/17/22 12:00 02/19/22 09:04 Prednisone 5 Mg Tab PO 5 mg QDAY [facility] Administration Sodium Chloride 10 ml 02/17/22 22:00 02/19/22 21:24 Sodium Chloride 0.9% 10 Ml Flush Syringe IV 10 ml BID [facility] Administration Sodium Chloride 10 ml 02/17/22 11:00 Sodium Chloride 0.9% 10 Ml Flush Syringe IV PRN PRN LINE FLUSH
[2022-02-20 09:08] LABS: Blood Urea Nitrogen 8 mg/dL (9-20); Calcium 9.7 mg/dL (8.4-10.2); Hemolysis Index 0
[2022-02-20 09:16] LABS: BUN/Creatinine Ratio 13
--- NOTE | 2022-02-20 09:54 | Progress Note ---
Assessment and Plan Cultures: Blood culture GPC 10/22 A/P: 66-year-old man past medical history gangrene, type 2 diabetes, hypertension, ESRD with a kidney transplant now with: #Right foot gangrene: Now status post TMA. Cultures are pending. #GPC bacteremia: likely contaminant, though await culture finalization #Diabetes: tight glycemic control for best outcomes. #Immunocompromised host with kidney transplant: Good renal function, continue home immunosuppression Recs: -Continue ceftriaxone alone for now given the setting of skin transplant -Follow-up cultures from surgery -Follow-up pathology to determine if surgical cure obtained Thank you for the consult, we will continue to follow. Akanksha Kelsey MD [facility] ([facility]) O: [phone] F: [phone] Subjective Date of service: 02/20/22 Principal diagnosis: Kidney transplant Interval history: Afebrile, normal white count. No new issues. Objective - Exam Narrative Exam: Physical Exam: Constitutional: Alert, cooperative. No acute distress Head, Ears, Nose: Normocephalic, atraumatic. External ears, nose normal Eyes: Conjunctivae/corneas clear. No icterus. No ptosis. Neck: Supple, no meningeal signs Oral: dentition fair, no thrush Cardiovascular: S1, S2 normal. Respiratory: Good air entry, clear to auscultation bilaterally GI: Soft, non-tender; bowel sounds normal. No peritoneal signs. Musculoskeletal: Right transmetatarsal amputation Skin: No rash or abscess Hem/Lymphatic: No palpable cervical or supraclavicular nodes. No lymphangitis Psych: Mood ok. Affect normal Neurological: Awake, alert, oriented. No gross abnormality - Constitutional Vitals: Vital Signs Temp Pulse Resp BP Pulse Ox 98.7 F 103 H 14 180/52 98 02/20/22 05:32 02/20/22 05:32 02/20/22 05:32 02/20/22 05:32 02/20/22 05:32 Temperature -Last 24 Hours Temperature 98.7 F Temperature 98.8 F Temperature 98.4 F Temperature 98.4 F - Labs CBC & Chem 7: 02/20/22 07:53 02/20/22 07:53 Labs: Abnormal lab results 05/04/22 05/04/22 05/05/22 Range/Units 07:59 11:19 07:53 Hgb 11.5 L (11.8-15.2) gm/dl Hct 34.4 L (35.5-45.6) % Lymph % (Auto) 9.0 L (13.4-35.0) % [place] % (Auto) 8.1 H (0.0-7.3) % Lymph # (Auto) 1.0 L (1.2-5.4) K/mm3 [place] # (Auto) 0.9 H (0.0-0.8) K/mm3 Seg Neutrophils % 81.7 H (40.0-70.0) % Seg Neutrophils # 8.7 H (1.8-7.7) K/mm3 Sodium (137-145) mmol/L BUN (9-20) mg/dL Creatinine (0.8-1.3) mg/dL Glucose (75-100) mg/dL POC Glucose 118 H 135 H (70-105) mg/dL 02/20/22 02/20/22 Range/Units 07:53 07:59 Hgb (11.8-15.2) gm/dl Hct (35.5-45.6) % Lymph % (Auto) (13.4-35.0) % [place] % (Auto) (0.0-7.3) % Lymph # (Auto) (1.2-5.4) K/mm3 [place] # (Auto) (0.0-0.8) K/mm3 Seg Neutrophils % (40.0-70.0) % Seg Neutrophils # (1.8-7.7) K/mm3 Sodium 135 L (137-145) mmol/L BUN 8 L (9-20) mg/dL Creatinine 0.6 L (0.8-1.3) mg/dL Glucose 131 H (75-100) mg/dL POC Glucose 123 H (70-105) mg/dL
--- NOTE | 2022-02-20 10:32 | Progress Note ---
Assessment and Plan Patient doing well following his TMA. He has a walking shoe to reduce pressure on his surgical site. Patient will need to work with physical therapy to resume ambulation. Would anticipate discharge tomorrow from a vascular point of view. Subjective Date of service: 02/20/22 Principal diagnosis: Kidney transplant Interval history: Patient with a history of right TMA postop day 2. Dressing changed. His staple line is intact with no significant eschar or exudates. Patient complains of only mild pain at the surgical site intermittently. Objective - Constitutional Vitals: Vital Signs - 12hr 02/19/22 02/20/22 02/20/22 22:32 05:15 05:32 Temperature 98.8 F 98.7 F Pulse Rate 83 103 H Pulse Rate [ 87 From Monitor] Respiratory 20 11 L 14 Rate Blood Pressure 141/33 Blood Pressure 180/52 [Right] O2 Sat by Pulse 99 96 98 Oximetry General appearance: Present: no acute distress - EENT Eyes: EOM intact ENT: hearing intact - Neck Neck: supple, normal ROM - Respiratory Respiratory effort: normal Extremities: abnormal (Postsurgical changes to the right foot) - Gastrointestinal General gastrointestinal: Present: deferred Rectal Exam: deferred - Genitourinary Male genitourinary: deferred - Psychiatric Psychiatric: cooperative - Labs CBC & Chem 7: 02/20/22 07:53 02/20/22 07:53 Labs: Abnormal lab results 02/19/22 02/19/22 02/20/22 Range/Units 07:59 11:19 07:53 Hgb 11.5 L (11.8-15.2) gm/dl Hct 34.4 L (35.5-45.6) % Lymph % (Auto) 9.0 L (13.4-35.0) % [place] % (Auto) 8.1 H (0.0-7.3) % Lymph # (Auto) 1.0 L (1.2-5.4) K/mm3 [place] # (Auto) 0.9 H (0.0-0.8) K/mm3 Seg Neutrophils % 81.7 H (40.0-70.0) % Seg Neutrophils # 8.7 H (1.8-7.7) K/mm3 Sodium (137-145) mmol/L BUN (9-20) mg/dL Creatinine (0.8-1.3) mg/dL Glucose (75-100) mg/dL POC Glucose 118 H 135 H (70-105) mg/dL 02/20/22 02/20/22 Range/Units 07:53 07:59 Hgb (11.8-15.2) gm/dl Hct (35.5-45.6) % Lymph % (Auto) (13.4-35.0) % [place] % (Auto) (0.0-7.3) % Lymph # (Auto) (1.2-5.4) K/mm3 [place] # (Auto) (0.0-0.8) K/mm3 Seg Neutrophils % (40.0-70.0) % Seg Neutrophils # (1.8-7.7) K/mm3 Sodium 135 L (137-145) mmol/L BUN 8 L (9-20) mg/dL Creatinine 0.6 L (0.8-1.3) mg/dL Glucose 131 H (75-100) mg/dL POC Glucose 123 H (70-105) mg/dL Medications & Allergies - Medications Allergies/Adverse Reactions: Allergies promethazine HCl [From Phenergan] Adverse Reaction (Mild, Verified 09/07/13 10:51) Unknown PT STATES HE GETS ERECTION WITH PHENERGAN. HE STATES HE DOES NOT LIKE THIS MEDICATION. Home Medications: Home Medications Medication Instructions Recorded Confirmed Last Taken Type Cinacalcet HCl [Sensipar] 60 mg PO DAILY 09/06/13 09/06/13 09/05/13 History HYDROcodone/ACETAMINOPHEN 7.5 mg PO Q6HR PRN 09/06/13 09/06/13 09/05/13 History [Hydrocodon-Acetaminoph 7.5-325] Lanthanum Carbonate [Fosrenol] 1,000 mg PO DAILY 09/06/13 09/06/13 Unknown History NIFEdipine [NIFEdipine ER] 90 mg PO DAILY 09/06/13 09/06/13 09/07/13 08:00 History Sevelamer Carbonate [Renvela] 800 mg PO TIDWM 09/06/13 09/06/13 09/05/13 History HYDROcodone/APAP 7.5-325 [[place] 1 - 2 each PO Q6HR PRN #30 tablet 09/07/13 Unknown Rx 7.5/325 mg] Active Medications: Generic Name Dose Route Start Last Admin Trade Name Freq PRN Reason Stop Dose Admin Acetaminophen 650 mg 02/17/22 11:00 Acetaminophen 325 Mg Tab PO Q4H PRN Pain MILD(1-3)/Fever >100.5/HELLER Cilostazol 100 mg 02/17/22 15:00 02/19/22 23:22 Cilostazol 100 Mg Tab PO 100 mg BID [facility] Administration Clopidogrel Bisulfate 75 mg 02/18/22 10:00 02/19/22 09:04 Clopidogrel 75 Mg Tab PO 75 mg QDAY [facility] Administration Dextrose 50 ml 02/17/22 17:24 Dextrose 50% In Water (25gm) 50 Ml Syringe IV Q30MIN PRN Hypoglycemia Protocol Famotidine 40 mg 02/17/22 16:00 02/19/22 09:03 Famotidine 20 Mg Tab PO 40 mg QDAY [facility] Administration Heparin Sodium (Porcine) 5,000 unit 02/17/22 14:00 02/20/22 08:00 Heparin 5,000 Unit/1 Ml Vial SUB-Q 5,000 unit TID [facility] Administration Hydromorphone HCl 1 mg 02/19/22 11:02 02/19/22 21:23 Hydromorphone 1 Mg/1 Ml Inj IV 1 mg Q4H PRN Administration Pain , Severe (7-10) Ceftriaxone Sodium 2 gm in 100 mls @ 200 mls/hr 02/17/22 20:00 02/19/22 21:21 Rocephin/Ns 2 Gm/100 Ml IV 200 mls/hr Q24H [facility] Administration Protocol Insulin Glargine 10 units 02/17/22 22:00 02/19/22 21:23 Insulin Glargine 100 Units/Ml SUB-Q Not Given QHS [facility] Insulin Human Lispro 0 unit 02/17/22 22:00 02/20/22 07:30 Insulin Lispro 100 Unit/Ml SUB-Q Not Given ACHS [facility] Protocol Insulin Human Regular 6 units 02/18/22 07:30 02/20/22 07:30 Insulin Regular, Human 100 Units/1 Ml SUB-Q 6 units AC [facility] Administration Metoclopramide HCl 10 mg 02/19/22 06:44 02/19/22 06:46 Metoclopramide 10 Mg/2 Ml Inj IV 10 mg Q8H PRN Administration Nausea And Vomiting Metoprolol Succinate 50 mg 02/18/22 10:00 02/19/22 09:04 Metoprolol Succinate Xl 50 Mg Tab PO 50 mg QDAY [facility] Administration Mycophenolate Mofetil 500 mg 02/17/22 22:00 02/19/22 23:22 Mycophenolate 500 Mg Tab PO 500 mg BID [facility] Administration Nifedipine 90 mg 02/19/22 10:00 02/19/22 09:03 Nifedipine Xl 90 Mg Tab PO 90 mg DAILY [facility] Administration Ondansetron HCl 4 mg 02/17/22 11:00 02/19/22 04:01 Ondansetron 4 Mg/2 Ml Inj IV 4 mg Q8H PRN Administration Nausea And Vomiting Oxycodone/Acetaminophen 2 tab 02/19/22 18:00 02/19/22 18:12 Oxycodone /Acetaminophen 5-325mg Tab PO 2 tab Q4H PRN Administration Pain, Moderate (4-6) Prednisone 5 mg 02/17/22 12:00 02/19/22 09:04 Prednisone 5 Mg Tab PO 5 mg QDAY [facility] Administration Sodium Chloride 10 ml 02/17/22 22:00 02/19/22 21:24 Sodium Chloride 0.9% 10 Ml Flush Syringe IV 10 ml BID [facility] Administration Sodium Chloride 10 ml 02/17/22 11:00 Sodium Chloride 0.9% 10 Ml Flush Syringe IV PRN PRN LINE FLUSH
[2022-02-20] MEDS: predniSONE 5 MG TAB PO SCH (10:56)
[2022-02-20] MEDS: FAMOTIDINE 20 MG TAB PO SCH (10:56)
[2022-02-20] MEDS: METOPROLOL SUCCINATE XL 50 MG TAB PO SCH (10:56)
[2022-02-20] MEDS: NIFEdipine XL 90 MG TAB PO SCH (10:57)
[2022-02-20] MEDS: CLOPIDOGREL 75 MG TAB PO SCH (10:57)
[2022-02-20] MEDS: HYDROmorphone 1 MG/1 ML INJ IV PRN (10:58)
[2022-02-20] MEDS: CILOSTAZOL 100 MG TAB PO SCH ×2 (11:02→21:00)
[2022-02-20] MEDS ORDERED: oxyCODONE /ACETAMINOPHEN 5-325MG TAB PO PRN (12:00)
[2022-02-20] MEDS ORDERED: MORPHINE 2 MG/1 ML INJ IV PRN (12:00)
[2022-02-20] MEDS: MYCOPHENOLATE 500 MG TAB PO SCH ×2 (12:35→21:00)
--- NOTE | 2022-02-20 18:01 | Progress Note ---
Assessment and Plan Cultures: Blood culture GPC 10/22 A/P: 66-year-old man past medical history gangrene, type 2 diabetes, hypertension, ESRD with a kidney transplant now with: #Right foot gangrene: Now status post TMA. Cultures are pending. #GPC bacteremia: likely contaminant, though await culture finalization #Diabetes: tight glycemic control for best outcomes. #Immunocompromised host with kidney transplant: Good renal function, continue home immunosuppression Recs: -Continue ceftriaxone alone for now given the setting of kidney transplant -Follow-up cultures from surgery -Follow-up pathology to determine if surgical cure obtained -Anticipated discharge with 7 days of doxycycline 100 mg every 12 hours. Thank you for the consult, we will continue to follow. Akanksha Kelsey MD [facility] ([facility]) O: [phone] F: [phone] Subjective Date of service: 02/20/22 Principal diagnosis: Kidney transplant Interval history: Afebrile, normal white count. Cultures with coagulase-negative staph. Objective - Exam Narrative Exam: Physical Exam: Constitutional: Alert, cooperative. No acute distress Head, Ears, Nose: Normocephalic, atraumatic. External ears, nose normal Eyes: Conjunctivae/corneas clear. No icterus. No ptosis. Neck: Supple, no meningeal signs Oral: dentition fair, no thrush Cardiovascular: S1, S2 normal. Respiratory: Good air entry, clear to auscultation bilaterally GI: Soft, non-tender; bowel sounds normal. No peritoneal signs. Musculoskeletal: Right transmetatarsal amputation Skin: No rash or abscess Hem/Lymphatic: No palpable cervical or supraclavicular nodes. No lymphangitis Psych: Mood ok. Affect normal Neurological: Awake, alert, oriented. No gross abnormality - Constitutional Vitals: Vital Signs Temp Pulse Resp BP Pulse Ox 98.8 F 101 H 18 172/64 96 02/20/22 16:14 02/20/22 16:14 02/20/22 16:14 02/20/22 16:14 02/20/22 16:14 Temperature -Last 24 Hours Temperature 98.8 F Temperature 98.9 F Temperature 98.7 F Temperature 98.8 F - Labs CBC & Chem 7: 02/20/22 07:53 02/20/22 07:53 Labs: Abnormal lab results 02/20/22 02/20/22 02/20/22 Range/Units 07:53 07:53 07:59 Hgb 11.5 L (11.8-15.2) gm/dl Hct 34.4 L (35.5-45.6) % Lymph % (Auto) 9.0 L (13.4-35.0) % [place] % (Auto) 8.1 H (0.0-7.3) % Lymph # (Auto) 1.0 L (1.2-5.4) K/mm3 [place] # (Auto) 0.9 H (0.0-0.8) K/mm3 Seg Neutrophils % 81.7 H (40.0-70.0) % Seg Neutrophils # 8.7 H (1.8-7.7) K/mm3 Sodium 135 L (137-145) mmol/L BUN 8 L (9-20) mg/dL Creatinine 0.6 L (0.8-1.3) mg/dL Glucose 131 H (75-100) mg/dL POC Glucose 123 H (70-105) mg/dL 02/20/22 Range/Units 11:42 Hgb (11.8-15.2) gm/dl Hct (35.5-45.6) % Lymph % (Auto) (13.4-35.0) % [place] % (Auto) (0.0-7.3) % Lymph # (Auto) (1.2-5.4) K/mm3 [place] # (Auto) (0.0-0.8) K/mm3 Seg Neutrophils % (40.0-70.0) % Seg Neutrophils # (1.8-7.7) K/mm3 Sodium (137-145) mmol/L BUN (9-20) mg/dL Creatinine (0.8-1.3) mg/dL Glucose (75-100) mg/dL POC Glucose 149 H (70-105) mg/dL
[2022-02-20] MEDS: cefTRIAXone/NS 2 GM/100 ML 2 GM/100 ML BAG IV SCH (20:57)
[2022-02-20] MEDS: INSULIN GLARGINE 100 UNITS/ML SUB-Q SCH (22:23)
[2022-02-21] MEDS: METOCLOPRAMIDE 10 MG/2 ML INJ IV PRN ×2 (05:15→22:17)
[2022-02-21] MEDS: INSULIN REGULAR, HUMAN 100 UNITS/1 ML SUB-Q SCH ×3 (08:29→17:26)
[2022-02-21] MEDS: HEPARIN 5,000 UNIT/1 ML VIAL SUB-Q SCH ×3 (08:29→20:57)
[2022-02-21] MEDS: INSULIN LISPRO 100 UNIT/ML SUB-Q SCH ×4 (08:30→22:17)
--- NOTE | 2022-02-21 08:41 | Progress Note ---
Assessment and Plan Assessment and plan: Patient is a 66-year-old male with history of gangrene, type 2 diabetes, hypertension, ESRD status post kidney transplant who presented with right great toe pain. He is followed by Dr. Arndt in the vascular surgery clinic for management of his gangrene. He was recently started on Rocephin for osteomyelitis 2 weeks ago. He reports waking up with 10 out of 10 throbbing pain this morning. He has never had similar pain in the past. He does have a PICC line in place. He reports taking all his medications and his gives him the Rocephin daily. Labs are notable for AST 57 ALT 182. All other labs and vitals were within normal limits. The patient was admitted for urgent vascular surgery interven tion. Infectious disease and nephrology were consulted in the ED. Hospital Course: 02/18: Plan for TMA today with IR. Will follow up post op. 02/19: s/p TMA of rt foot. Pain medications adjusted for improved control. Glycemic control satisfactory. Will follow color consultant recommendations. Patient will need aggressive physical therapy while in hospital. CM aware of potential needs for OP rehab. 02/20: Doing well on encounter. Has not required pain medication and states his foot no longer hurts. Scale back pain meds to percocet 5/325 mg q8 and morphine 1mg q6 hr prn.. D/w vascular surgery, will complete dressing change today and okay with discharge tomorrow. Patient to continue ceftriaxone IV per infectious disease. Anticipate d/c in next 24 hrs. 02/21; vascular cleared for discharge, ID recommended to follow surgical cultures[TMA on 02/18/2022] DC planning pending TMA surgical cultures report #Critical limb ischemia right foot; #Gangrene #PAD #Osteomyelitis -s/p endovascular revascularization 02/18 by IR -Continue Plavix and cilostazol -access PICC line - BCX: GPC 10/22 bottles, awaiting speciation. -ID following #-s/p TMA of right foot on 02/18 Postoperative day 3 from right transmetatarsal amputation. The patient is doing well and is able to ambulate with his Darco boot. Okay to discharge, from a vascular surgery standpoint, when medically cleared. He will be discharged on doxycycline 100 mg p.o. twice daily for 7 days. He should follow-up in the clinic in 2 weeks after discharge. ID advised to follow TMA right foot surgical culture report[pending] #Hypertension -currently controlled -will restart metoprolol succinate 50mg BID -goal SBP <160 #History of kidney transplant -transplanted 8 years ago -will continue prednisone and cellcept -Nephrology consulted, assistance appreciated -will avoid nephrotoxins #Insulin-dependent type 2 diabetes -patient takes levemir 18 QHS and novolog 16 units TID - SSI, lantus 10U qhs and novolog 6 units TID -will adjust according to POC glucose readings -goal BG 140-180 while inpatient #Obesity; BMI 34.3 Advised diet modification exercise as tolerated and weight reduction when medically stable Also advised to be compliant with medications, diet and exercises as tolerated Patient verbalized understanding, answered all her questions + 30 min preventative health counseling weight reduction and healthy lifestyle modifications We will closely monitor the patient and adjust management as needed Plan of care reviewed with the patient and his nurse And the family member at the bedside DC planning per case management Pending surgical culture reports[post TMA 02/18/2022] History Interval history: I have seen and examined the patient at the bedside Patient's chart and medications reviewed Patient complains of generalized weakness And fatigue Vital signs noted Hospitalist Physical - Constitutional Vitals: Temp Pulse Resp BP Pulse Ox 98.2 F 109 H 19 98/31 95 02/21/22 05:08 02/21/22 05:08 02/21/22 05:08 02/21/22 05:08 02/21/22 05:08 General appearance: Present: no acute distress, well-nourished, obese - EENT Eyes: Present: PERRL, EOM intact - Neck Neck: Present: supple, normal ROM - Respiratory Respiratory effort: normal Respiratory: bilateral: diminished, negative: rales, rhonchi, wheezing - Cardiovascular Rhythm: regular Heart Sounds: Present: S1 & S2 - Extremities Extremities: no ischemia, No edema, abnormal (Surgical dressing in place) - Abdominal General gastrointestinal: soft, non-tender, non-distended, normal bowel sounds - Integumentary Integumentary: Present: clear, warm - Psychiatric Psychiatric: appropriate mood/affect, cooperative - Neurologic Neurologic: moves all extremities Results - Labs CBC & Chem 7: 02/20/22 07:53 02/20/22 07:53 Labs: Laboratory Last Values WBC 10.6 K/mm3 (4.5-11.0) 02/20/22 07:53 RBC 3.95 M/mm3 (3.65-5.03) 02/20/22 07:53 Hgb 11.5 gm/dl (11.8-15.2) L 02/20/22 07:53 Hct 34.4 % (35.5-45.6) L 02/20/22 07:53 MCV 87 fl (84-94) 02/20/22 07:53 MCH 29 pg (28-32) 02/20/22 07:53 MCHC 34 % (32-34) 02/20/22 07:53 RDW 14.9 % (13.2-15.2) 02/20/22 07:53 Plt Count 160 K/mm3 (140-440) 02/20/22 07:53 Lymph % (Auto) 9.0 % (13.4-35.0) L 02/20/22 07:53 [place] % (Auto) 8.1 % (0.0-7.3) H 02/20/22 07:53 Eos % (Auto) 0.8 % (0.0-4.3) 02/20/22 07:53 Baso % (Auto) 0.4 % (0.0-1.8) 02/20/22 07:53 Lymph # (Auto) 1.0 K/mm3 (1.2-5.4) L 02/20/22 07:53 [place] # (Auto) 0.9 K/mm3 (0.0-0.8) H 02/20/22 07:53 Eos # (Auto) 0.1 K/mm3 (0.0-0.4) 02/20/22 07:53 Baso # (Auto) 0.0 K/mm3 (0.0-0.1) 02/20/22 07:53 Seg Neutrophils % 81.7 % (40.0-70.0) H 02/20/22 07:53 Seg Neutrophils # 8.7 K/mm3 (1.8-7.7) H 02/20/22 07:53 PT 12.9 Sec. (12.2-14.9) 02/18/22 04:00 INR 0.88 (0.87-1.13) 02/18/22 04:00 APTT 29.5 Sec. (24.2-36.6) 02/17/22 08:36 Sodium 135 mmol/L (137-145) L 02/20/22 07:53 Potassium 3.8 mmol/L (3.6-5.0) 02/20/22 07:53 Chloride 98.3 mmol/L (98-107) 02/20/22 07:53 Carbon Dioxide 24 mmol/L (22-30) 02/20/22 07:53 Anion Gap 17 mmol/L 02/20/22 07:53 BUN 8 mg/dL (9-20) L 02/20/22 07:53 Creatinine 0.6 mg/dL (0.8-1.3) L 02/20/22 07:53 Estimated GFR > 60 ml/min 02/20/22 07:53 BUN/Creatinine Ratio 13 % 02/20/22 07:53 Glucose 131 mg/dL (75-100) H 02/20/22 07:53 POC Glucose 153 mg/dL (70-105) H 02/20/22 22:15 Lactic Acid 1.60 mmol/L (0.7-2.0) 02/17/22 08:36 Calcium 9.7 mg/dL (8.4-10.2) 02/20/22 07:53 Total Bilirubin 0.20 mg/dL (0.1-1.2) 02/17/22 08:14 AST 57 units/L (5-40) H 02/17/22 08:14 ALT 192 units/L (7-56) H 02/17/22 08:14 Alkaline Phosphatase 237 units/L (35-129) H 02/17/22 08:14 Total Protein 6.5 g/dL (6.3-8.2) 02/17/22 08:14 Albumin 3.8 g/dL (3.9-5) L 02/17/22 08:14 Albumin/Globulin Ratio 1.4 % 02/17/22 08:14 Urine Color Yellow (Yellow) 02/18/22 Unknown Urine Turbidity Clear (Clear) 02/18/22 Unknown Urine pH 5.0 (5.0-7.0) 02/18/22 Unknown Ur Specific [place] 1.024 (1.003-1.030) 02/18/22 Unknown Urine Protein 100 mg/dl mg/dL (Negative) 02/18/22 Unknown Urine Glucose (UA) 150 mg/dL (Negative) 02/18/22 Unknown Urine Ketones Neg mg/dL (Negative) 02/18/22 Unknown Urine Blood Sm (Negative) 02/18/22 Unknown Urine Nitrite Neg (Negative) 02/18/22 Unknown Urine Bilirubin Neg (Negative) 02/18/22 Unknown Urine Urobilinogen < 2.0 mg/dL (<2.0) 02/18/22 Unknown Ur Leukocyte Esterase Neg (Negative) 02/18/22 Unknown Urine WBC (Auto) 1.0 /HPF (0.0-6.0) 02/18/22 Unknown Urine RBC (Auto) 2.0 /HPF (0.0-6.0) 02/18/22 Unknown U Epithel Cells (Auto) 1.0 /HPF (0-13.0) 02/18/22 Unknown Urine Mucus Few /HPF 02/18/22 Unknown Blood Type O POSITIVE 02/17/22 08:36 Antibody Screen Negative 02/17/22 08:36 Microbiology: Microbiology 02/17/22 08:36 Peripheral/Venous Blood Culture - Preliminary Coag Negative Staphylococcus 02/17/22 08:36 Peripheral/Venous Blood Culture - Preliminary NO GROWTH AFTER 72 HOURS Simmons/IV: Voiding Method Urinal Active Medications - Current Medications Current Medications: Generic Name Dose Route Start Last Admin Trade Name Freq PRN Reason Stop Dose Admin Acetaminophen 650 mg 02/17/22 11:00 Acetaminophen 325 Mg Tab PO Q4H PRN Pain MILD(1-3)/Fever >100.5/HELLER Cilostazol 100 mg 02/17/22 15:00 02/20/22 21:00 Cilostazol 100 Mg Tab PO 100 mg BID [facility] Administration Clopidogrel Bisulfate 75 mg 02/18/22 10:00 02/20/22 10:57 Clopidogrel 75 Mg Tab PO 75 mg QDAY [facility] Administration Dextrose 50 ml 02/17/22 17:24 Dextrose 50% In Water (25gm) 50 Ml Syringe IV Q30MIN PRN Hypoglycemia Protocol Famotidine 40 mg 02/17/22 16:00 02/20/22 10:56 Famotidine 20 Mg Tab PO 40 mg QDAY [facility] Administration Heparin Sodium (Porcine) 5,000 unit 02/17/22 14:00 05/06/22 08:29 Heparin 5,000 Unit/1 Ml Vial SUB-Q 5,000 unit TID [facility] Administration Ceftriaxone Sodium 2 gm in 100 mls @ 200 mls/hr 02/17/22 20:00 02/20/22 20:57 Rocephin/Ns 2 Gm/100 Ml IV 200 mls/hr Q24H [facility] Administration Protocol Insulin Glargine 10 units 02/17/22 22:00 02/20/22 22:23 Insulin Glargine 100 Units/Ml SUB-Q Not Given QHS [facility] Insulin Human Lispro 0 unit 02/17/22 22:00 02/21/22 08:30 Insulin Lispro 100 Unit/Ml SUB-Q 3 unit ACHS [facility] Administration Protocol Insulin Human Regular 6 units 02/18/22 07:30 02/21/22 08:29 Insulin Regular, Human 100 Units/1 Ml SUB-Q 6 units AC [facility] Administration Metoclopramide HCl 10 mg 02/19/22 06:44 02/21/22 05:15 Metoclopramide 10 Mg/2 Ml Inj IV 10 mg Q8H PRN Administration Nausea And Vomiting Metoprolol Succinate 50 mg 02/18/22 10:00 02/20/22 10:56 Metoprolol Succinate Xl 50 Mg Tab PO 50 mg QDAY [facility] Administration Morphine Sulfate 1 mg 02/20/22 12:00 Morphine 2 Mg/1 Ml Inj IV Q6H PRN Pain, Moderate (4-6) Mycophenolate Mofetil 500 mg 02/17/22 22:00 02/20/22 21:00 Mycophenolate 500 Mg Tab PO 500 mg BID [facility] Administration Nifedipine 90 mg 02/19/22 10:00 02/20/22 10:57 Nifedipine Xl 90 Mg Tab PO 90 mg DAILY [facility] Administration Ondansetron HCl 4 mg 02/17/22 11:00 02/19/22 04:01 Ondansetron 4 Mg/2 Ml Inj IV 4 mg Q8H PRN Administration Nausea And Vomiting Oxycodone/Acetaminophen 1 tab 02/20/22 12:00 02/20/22 17:51 Oxycodone /Acetaminophen 5-325mg Tab PO 1 tab Q8H PRN Administration Pain, Moderate (4-6) Prednisone 5 mg 02/17/22 12:00 02/20/22 10:56 Prednisone 5 Mg Tab PO 5 mg QDAY [facility] Administration Sodium Chloride 10 ml 02/17/22 22:00 02/20/22 21:03 Sodium Chloride 0.9% 10 Ml Flush Syringe IV 10 ml BID [facility] Administration Sodium Chloride 10 ml 02/17/22 11:00 Sodium Chloride 0.9% 10 Ml Flush Syringe IV PRN PRN LINE FLUSH
--- NOTE | 2022-02-21 09:24 | Progress Note ---
Assessment and Plan Diabetes mellitus Hypertension History of kidney transplant Plan: stable kidney function during this admission Kidney replaced by transplant in 2014- On Cellcept 500 mg BID and Prednisone 5 mg po daily Renally dose medications Strict I&O's daily Obtain daily weights Avoid nephrotoxic agents Continue to monitor renal function Subjective Date of service: 02/21/22 Principal diagnosis: Kidney transplant Interval history: No acute issues reported Objective - Vital Signs Vital signs: Vital Signs - 12hr 02/20/22 02/21/22 23:51 05:08 Temperature 98.1 F 98.2 F Pulse Rate 89 109 H Respiratory 18 19 Rate Blood Pressure 93/36 98/31 O2 Sat by Pulse 96 95 Oximetry - Lab 02/20/22 07:53 02/20/22 07:53 Most recent lab results Calcium 9.7 mg/dL (8.4-10.2) 02/20/22 07:53 Medications & Allergies - Medications Allergies/Adverse Reactions: Allergies promethazine HCl [From Phenergan] Adverse Reaction (Mild, Verified 09/07/13 10:51) Unknown PT STATES HE GETS ERECTION WITH PHENERGAN. HE STATES HE DOES NOT LIKE THIS ME DICATION. Home Medications: Home Medications Medication Instructions Recorded Confirmed Last Taken Type Cinacalcet HCl [Sensipar] 60 mg PO DAILY 09/06/13 09/06/13 09/05/13 History HYDROcodone/ACETAMINOPHEN 7.5 mg PO Q6HR PRN 09/06/13 09/06/13 09/05/13 History [Hydrocodon-Acetaminoph 7.5-325] Lanthanum Carbonate [Fosrenol] 1,000 mg PO DAILY 09/06/13 09/06/13 Unknown History NIFEdipine [NIFEdipine ER] 90 mg PO DAILY 09/06/13 09/06/13 09/07/13 08:00 History Sevelamer Carbonate [Renvela] 800 mg PO TIDWM 09/06/13 09/06/13 09/05/13 History HYDROcodone/APAP 7.5-325 [[place] 1 - 2 each PO Q6HR PRN #30 tablet 09/07/13 Unknown Rx 7.5/325 mg] Active Medications: Generic Name Dose Route Start Last Admin Trade Name Freq PRN Reason Stop Dose Admin Acetaminophen 650 mg 02/17/22 11:00 Acetaminophen 325 Mg Tab PO Q4H PRN Pain MILD(1-3)/Fever >100.5/HELLER Cilostazol 100 mg 02/17/22 15:00 02/20/22 21:00 Cilostazol 100 Mg Tab PO 100 mg BID [facility] Administration Clopidogrel Bisulfate 75 mg 02/18/22 10:00 02/20/22 10:57 Clopidogrel 75 Mg Tab PO 75 mg QDAY [facility] Administration Dextrose 50 ml 02/17/22 17:24 Dextrose 50% In Water (25gm) 50 Ml Syringe IV Q30MIN PRN Hypoglycemia Protocol Famotidine 40 mg 02/17/22 16:00 02/20/22 10:56 Famotidine 20 Mg Tab PO 40 mg QDAY [facility] Administration Heparin Sodium (Porcine) 5,000 unit 02/17/22 14:00 02/21/22 08:29 Heparin 5,000 Unit/1 Ml Vial SUB-Q 5,000 unit TID [facility] Administration Ceftriaxone Sodium 2 gm in 100 mls @ 200 mls/hr 02/17/22 20:00 02/20/22 20:57 Rocephin/Ns 2 Gm/100 Ml IV 200 mls/hr Q24H [facility] Administration Protocol Insulin Glargine 10 units 02/17/22 22:00 02/20/22 22:23 Insulin Glargine 100 Units/Ml SUB-Q Not Given QHS [facility] Insulin Human Lispro 0 unit 02/17/22 22:00 02/21/22 08:30 Insulin Lispro 100 Unit/Ml SUB-Q 3 unit ACHS [facility] Administration Protocol Insulin Human Regular 6 units 02/18/22 07:30 02/21/22 08:29 Insulin Regular, Human 100 Units/1 Ml SUB-Q 6 units AC [facility] Administration Metoclopramide HCl 10 mg 02/19/22 06:44 02/21/22 05:15 Metoclopramide 10 Mg/2 Ml Inj IV 10 mg Q8H PRN Administration Nausea And Vomiting Metoprolol Succinate 50 mg 02/18/22 10:00 02/20/22 10:56 Metoprolol Succinate Xl 50 Mg Tab PO 50 mg QDAY [facility] Administration Morphine Sulfate 1 mg 02/20/22 12:00 Morphine 2 Mg/1 Ml Inj IV Q6H PRN Pain, Moderate (4-6) Mycophenolate Mofetil 500 mg 02/17/22 22:00 02/20/22 21:00 Mycophenolate 500 Mg Tab PO 500 mg BID [facility] Administration Nifedipine 90 mg 02/19/22 10:00 02/20/22 10:57 Nifedipine Xl 90 Mg Tab PO 90 mg DAILY [facility] Administration Ondansetron HCl 4 mg 02/17/22 11:00 02/19/22 04:01 Ondansetron 4 Mg/2 Ml Inj IV 4 mg Q8H PRN Administration Nausea And Vomiting Oxycodone/Acetaminophen 1 tab 02/20/22 12:00 02/20/22 17:51 Oxycodone /Acetaminophen 5-325mg Tab PO 1 tab Q8H PRN Administration Pain, Moderate (4-6) Prednisone 5 mg 02/17/22 12:00 02/20/22 10:56 Prednisone 5 Mg Tab PO 5 mg QDAY [facility] Administration Sodium Chloride 10 ml 02/17/22 22:00 02/20/22 21:03 Sodium Chloride 0.9% 10 Ml Flush Syringe IV 10 ml BID [facility] Administration Sodium Chloride 10 ml 02/17/22 11:00 Sodium Chloride 0.9% 10 Ml Flush Syringe IV PRN PRN LINE FLUSH
[2022-02-21] MEDS: MYCOPHENOLATE 500 MG TAB PO SCH ×2 (09:27→22:17)
[2022-02-21] MEDS: METOPROLOL SUCCINATE XL 50 MG TAB PO SCH (09:28)
[2022-02-21] MEDS: FAMOTIDINE 20 MG TAB PO SCH (09:28)
[2022-02-21] MEDS: predniSONE 5 MG TAB PO SCH (09:28)
[2022-02-21] MEDS: NIFEdipine XL 90 MG TAB PO SCH (09:30)
[2022-02-21] MEDS: CILOSTAZOL 100 MG TAB PO SCH ×2 (09:30→22:17)
[2022-02-21] MEDS: CLOPIDOGREL 75 MG TAB PO SCH (09:33)
--- NOTE | 2022-02-21 12:24 | Progress Note ---
Assessment and Plan Postoperative day 3 from right transmetatarsal amputation. The patient is doing well and is able to ambulate with his Darco boot. Okay to discharge, from a vascular surgery standpoint, when medically cleared. He will be discharged on doxycycline 100 mg p.o. twice daily for 7 days. He should follow-up in the clinic in 2 weeks after discharge. Subjective Date of service: 02/21/22 Principal diagnosis: Kidney transplant Interval history: The patient is able to ambulate with toe offloading Titus boot. He states he is not having any pain at this time. Objective - Constitutional Vitals: Vital Signs - 12hr 02/21/22 02/21/22 02/21/22 05:08 09:28 11:41 Temperature 98.2 F Pulse Rate 109 H 102 H Respiratory 19 Rate Blood Pressure 98/31 O2 Sat by Pulse 95 97 Oximetry Extremities: abnormal (Right TMA incision is clean, dry, and intact without evidence of dehiscence or infection) - Labs CBC & Chem 7: 02/20/22 07:53 02/20/22 07:53 Labs: Abnormal lab results 02/20/22 02/20/22 02/21/22 Range/Units 11:42 22:15 08:13 POC Glucose 149 H 153 H 239 H (70-105) mg/dL Medications & Allergies - Medications Allergies/Adverse Reactions: Allergies promethazine HCl [From Phenergan] Adverse Reaction (Mild, Verified 09/07/13 10:51) Unknown PT STATES HE GETS ERECTION WITH PHENERGAN. HE STATES HE DOES NOT LIKE THIS MEDICATION. Home Medications: Home Medications Medication Instructions Recorded Confirmed Last Taken Type Cinacalcet HCl [Sensipar] 60 mg PO DAILY 09/06/13 09/06/13 09/05/13 History HYDROcodone/ACETAMINOPHEN 7.5 mg PO Q6HR PRN 09/06/13 09/06/13 09/05/13 History [Hydrocodon-Acetaminoph 7.5-325] Lanthanum Carbonate [Fosrenol] 1,000 mg PO DAILY 09/06/13 09/06/13 Unknown History NIFEdipine [NIFEdipine ER] 90 mg PO DAILY 09/06/13 09/06/13 09/07/13 08:00 History Sevelamer Carbonate [Renvela] 800 mg PO TIDWM 09/06/13 09/06/1313 History HYDROcodone/APAP 7.5-325 [[place] 1 - 2 each PO Q6HR PRN #30 tablet 09/07/13 Unknown Rx 7.5/325 mg] Active Medications: Generic Name Dose Route Start Last Admin Trade Name Freq PRN Reason Stop Dose Admin Acetaminophen 650 mg 02/17/22 11:00 Acetaminophen 325 Mg Tab PO Q4H PRN Pain MILD(1-3)/Fever >100.5/HELLER Cilostazol 100 mg 02/17/22 15:00 02/21/22 09:30 Cilostazol 100 Mg Tab PO 100 mg BID [facility] Administration Clopidogrel Bisulfate 75 mg 02/18/22 10:00 02/21/22 09:33 Clopidogrel 75 Mg Tab PO 75 mg QDAY [facility] Administration Dextrose 50 ml 02/17/22 17:24 Dextrose 50% In Water (25gm) 50 Ml Syringe IV Q30MIN PRN Hypoglycemia Protocol Famotidine 40 mg 02/17/22 16:00 02/21/22 09:28 Famotidine 20 Mg Tab PO 40 mg QDAY [facility] Administration Heparin Sodium (Porcine) 5,000 unit 02/17/22 14:00 02/21/22 08:29 Heparin 5,000 Unit/1 Ml Vial SUB-Q 5,000 unit TID [facility] Administration Ceftriaxone Sodium 2 gm in 100 mls @ 200 mls/hr 02/17/22 20:00 02/20/22 20:57 Rocephin/Ns 2 Gm/100 Ml IV 200 mls/hr Q24H [facility] Administration Protocol Insulin Glargine 10 units 02/17/22 22:00 02/20/22 22:23 Insulin Glargine 100 Units/Ml SUB-Q Not Given QHS [facility] Insulin Human Lispro 0 unit 02/17/22 22:00 02/21/22 08:30 Insulin Lispro 100 Unit/Ml SUB-Q 3 unit ACHS [facility] Administration Protocol Insulin Human Regular 6 units 02/18/22 07:30 02/21/22 08:29 Insulin Regular, Human 100 Units/1 Ml SUB-Q 6 units AC [facility] Administration Metoclopramide HCl 10 mg 02/19/22 06:44 02/21/22 05:15 Metoclopramide 10 Mg/2 Ml Inj IV 10 mg Q8H PRN Administration Nausea And Vomiting Metoprolol Succinate 50 mg 02/18/22 10:00 02/21/22 09:28 Metoprolol Succinate Xl 50 Mg Tab PO 50 mg QDAY [facility] Administration Morphine Sulfate 1 mg 02/20/22 12:00 Morphine 2 Mg/1 Ml Inj IV Q6H PRN Pain, Moderate (4-6) Mycophenolate Mofetil 500 mg 02/17/22 22:00 02/21/22 09:27 Mycophenolate 500 Mg Tab PO 500 mg BID [facility] Administration Nifedipine 90 mg 02/19/22 10:00 02/21/22 09:30 Nifedipine Xl 90 Mg Tab PO Not Given DAILY [facility] Ondansetron HCl 4 mg 02/17/22 11:00 02/19/22 04:01 Ondansetron 4 Mg/2 Ml Inj IV 4 mg Q8H PRN Administration Nausea And Vomiting Oxycodone/Acetaminophen 1 tab 02/20/22 12:00 02/20/22 17:51 Oxycodone /Acetaminophen 5-325mg Tab PO 1 tab Q8H PRN Administration Pain, Moderate (4-6) Prednisone 5 mg 02/17/22 12:00 02/21/22 09:28 Prednisone 5 Mg Tab PO 5 mg QDAY [facility] Administration Sodium Chloride 10 ml 02/17/22 22:00 02/21/22 09:31 Sodium Chloride 0.9% 10 Ml Flush Syringe IV 10 ml BID [facility] Administration Sodium Chloride 10 ml 02/17/22 11:00 Sodium Chloride 0.9% 10 Ml Flush Syringe IV PRN PRN LINE FLUSH
--- NOTE | 2022-02-21 12:40 | Progress Note ---
Assessment and Plan Cultures: Blood culture coagulase-negative staph / A/P: 66-year-old man past medical history gangrene, type 2 diabetes, hypertension, ESRD with a kidney transplant now with: #Right foot gangrene: Now status post TMA. Cultures are pending. #GPC bacteremia: likely contaminant with coagulase-negative staph #Diabetes: tight glycemic control for best outcomes. #Immunocompromised host with kidney transplant: Good renal function, continue home immunosuppression Recs: -Continue ceftriaxone alone for now given the setting of kidney transplant -Follow-up cultures from surgery -Follow-up pathology to determine if surgical cure obtained -Anticipated discharge with 7 days of doxycycline 100 mg every 12 hours. Thank you for the consult, we will sign off. Please call questions. Akanksha Kelsey MD [facility] ([facility]) O: [phone] F: [phone] Subjective Date of service: 02/21/22 Principal diagnosis: Kidney transplant Interval history: Afebrile, normal white count. No acute issues. Objective - Exam Narrative Exam: Physical Exam: Constitutional: Alert, cooperative. No acute distress Head, Ears, Nose: Normocephalic, atraumatic. External ears, nose normal Eyes: Conjunctivae/corneas clear. No icterus. No ptosis. Neck: Supple, no meningeal signs Oral: dentition fair, no thrush Cardiovascular: S1, S2 normal. Respiratory: Good air entry, clear to auscultation bilaterally GI: Soft, non-tender; bowel sounds normal. No peritoneal signs. Musculoskeletal: Right transmetatarsal amputation Skin: No rash or abscess Hem/Lymphatic: No palpable cervical or supraclavicular nodes. No lymphangitis Psych: Mood ok. Affect normal Neurological: Awake, alert, oriented. No gross abnormality - Constitutional Vitals: Vital Signs Temp Pulse Resp BP Pulse Ox 98.2 F 102 H 19 98/31 97 02/21/22 05:08 02/21/22 09:28 02/21/22 05:08 02/21/22 05:08 02/21/22 11:41 Temperature -Last 24 Hours Temperature 98.2 F Temperature 98.1 F Temperature 98.8 F - Labs CBC & Chem 7: 02/20/22 07:53 02/20/22 07:53 Labs: Abnormal lab results 02/20/22 02/20/22 02/21/22 Range/Units 11:42 22:15 08:13 POC Glucose 149 H 153 H 239 H (70-105) mg/dL
[2022-02-21] MEDS: cefTRIAXone/NS 2 GM/100 ML 2 GM/100 ML BAG IV SCH (20:53)
[2022-02-21] MEDS: INSULIN GLARGINE 100 UNITS/ML SUB-Q SCH (22:17)
[2022-02-22 06:10] VITALS: BP 132/32
--- NOTE | 2022-02-22 07:29 | Discharge Summary ---
Providers - Providers Date of Admission: 02/17/22 11:00 Date of discharge: 02/22/22 Attending physician: EDGAR SHEETS 02/17/22 09:33 Consult to Physician [CONS] Urgent Comment: Consulting Provider: ELVIRA VERGARA Physician Instructions: Reason For Exam: hx renal transplant 02/17/22 09:34 Consult to Physician [CONS] Urgent Comment: Consulting Provider: MINA MITCHELL Physician Instructions: Reason For Exam: gangrene for OR Consult to Physician [CONS] Urgent Comment: Consulting Provider: JAVY JUDD Physician Instructions: Reason For Exam: gangrene 02/17/22 14:39 Consult to Case Management [CONS] Routine Services Needed at Discharge: Wound Vac Notified:: cm 02/17/22 19:27 Consult to PICC Line RN [CONS] Routine Reason For Exam: Assess patient picc line admitted with Type Line:: PICC 02/18/22 Physical Therapy Evaluation and Treat [CONS] Routine Comment: Wear Titus Heel Weight bearing shoe w/ambulation Reason For Exam: s/p Right Transmetatarsal Amputation Primary care physician: CONSULTING ANALYST Hospitalization Condition: Stable Procedures: s/p revascularization s/p right foot TMA Hospital course: #Critical limb ischemia right foot; #Gangrene right foot #PAD #Osteomyelitis -s/p endovascular revascularization 02/18 by IR -Continue Plavix and cilostazol -access PICC line - BCX: GPC / bottles, awaiting speciation. -ID following #-s/p TMA of right foot on 02/18 Postoperative day 3 from right transmetatarsal amputation. The patient is doing well and is able to ambulate with his Darco boot. Okay to discharge, from a vascular surgery standpoint, when medically cleared. He will be discharged on doxycycline 100 mg p.o. twice daily for 7 days. He should follow-up in the clinic in 2 weeks after discharge. ID advised to follow TMA right foot surgical culture report[pending] #Hypertension -currently controlled -will restart metoprolol succinate 50mg BID -goal SBP <160 #History of kidney transplant -transplanted 8 years ago -will continue prednisone and cellcept -Nephrology consulted, assistance appreciated -will avoid nephrotoxins #Insulin-dependent type 2 diabetes -patient takes levemir 18 QHS and novolog 16 units TID - SSI, lantus 10U qhs and novolog 6 units TID -will adjust according to POC glucose readings -goal BG 140-180 while inpatient #Obesity; BMI 34.3 Advised diet modification exercise as tolerated and weight reduction when medically stable Also advised to be compliant with medications, diet and exercises as tolerated Patient verbalized understanding, answered all her questions + 30 min preventative health counseling weight reduction and healthy lifestyle modifications Disposition: HOME HEALTH CARE SERVICE Final Discharge Diagnosis (Prints w/discharge instructions): Peripheral arterial disease. critical limb ischemia. Right foot gangrene. s/p revascularization. s/p TMA of right foot. Hypertension. History of kidney transplant. Type 2 diabetes mellitus. Obesity BMI 33.7 Time spent for discharge: 40 min Core Measure Documentation - Palliative Care Palliative Care/ Comfort Measures: Not Applicable - Core Measures Any of the following diagnoses?: none Exam - Constitutional Vitals: Temp Pulse Resp BP Pulse Ox 98.7 F 98 H 18 132/32 94 02/22/22 06:09 02/22/22 06:09 02/22/22 06:09 02/22/22 06:09 02/22/22 06:09 Plan Activity: advance as tolerated, fall precautions Diet: diabetic Special Instructions: physical therapy (Home health PT) Durable Medical Equipment Needed Upon Discharge: Walker-Rolling Additional Instructions: If you have worsening symptoms contact MD or go to the nearest emergency room as needed. Continue IV antibiotics 3 days a week at Dr. Rich's office. Do not take Pepcid when you are on antibiotic doxycycline for 7 days. Strongly advised to comply with medications, diet, follow-up visits. Advised diet modification, exercise as tolerated and weight reduction when you are medically stable. Advised to follow-up with vascular physician, infectious diseases physician and primary care physician per schedule Follow up with: JAVY JUDD MD [Staff Physician] - 14 Days HAZEL RICH MD [Staff Physician] - 10 Days Prescriptions: Doxycycline Hyclate 100 mg PO BID #14 cap Famotidine [Pepcid] 40 mg PO QDAY #30 tablet cilostazoL [Pletal] 100 mg PO BID #60 tablet
[2022-02-22] MEDS: INSULIN REGULAR, HUMAN 100 UNITS/1 ML SUB-Q SCH (07:30)
[2022-02-22] MEDS: INSULIN LISPRO 100 UNIT/ML SUB-Q SCH (07:30)
[2022-02-22] MEDS: HEPARIN 5,000 UNIT/1 ML VIAL SUB-Q SCH (08:00)
[2022-02-22] MEDS: NIFEdipine XL 90 MG TAB PO SCH (09:33)
[2022-02-22] MEDS: FAMOTIDINE 20 MG TAB PO SCH (09:33)
[2022-02-22] MEDS: MYCOPHENOLATE 500 MG TAB PO SCH (09:33)
[2022-02-22] MEDS: predniSONE 5 MG TAB PO SCH (09:33)
[2022-02-22] MEDS: CLOPIDOGREL 75 MG TAB PO SCH (09:33)
[2022-02-22] MEDS: METOPROLOL SUCCINATE XL 50 MG TAB PO SCH (09:33)
[2022-02-22] MEDS: CILOSTAZOL 100 MG TAB PO SCH (09:33)
--- NOTE | 2022-02-22 11:10 | Progress Note ---
Subjective Date of service: 02/22/22 Principal diagnosis: Kidney transplant Objective - Vital Signs Vital signs: Vital Signs - 12hr 02/22/22 02/22/22 00:10 06:09 Temperature 98.7 F 98.7 F Pulse Rate 107 H 98 H Respiratory 18 18 Rate Blood Pressure 119/37 132/32 O2 Sat by Pulse 95 94 Oximetry - Lab 02/20/22 07:53 02/20/22 07:53 Most recent lab results Calcium 9.7 mg/dL (8.4-10.2) 02/20/22 07:53 Medications & Allergies - Medications Allergies/Adverse Reactions: Allergies promethazine HCl [From Phenergan] Adverse Reaction (Mild, Verified 09/07/13 10:51) Unknown PT STATES HE GETS ERECTION WITH PHENERGAN. HE STATES HE DOES NOT LIKE THIS MEDICATION. Home Medications: Home Medications Medication Instructions Recorded Confirmed Last Taken Type Cinacalcet HCl [Sensipar] 60 mg PO BID 09/06/13 02/21/22 09/05/13 History Lanthanum Carbonate [Fosrenol] 1,000 mg PO DAILY 09/06/13 02/21/22 Unknown History HYDROcodone/APAP 7.5-325 [[place] 1 - 2 each PO Q6HR PRN #30 tablet 09/07/13 02/21/22 Unknown Rx 7.5-325 mg TAB] Clopidogrel [Plavix] 75 mg PO QDAY 02/21/22 02/21/22 Unknown History Insulin Aspart (Nf) [NovoLOG 16 units SQ TID 02/21/22 02/21/22 Unknown History Flexpen] Insulin Detemir (Nf) [Levemir 18 units SQ HS 02/21/22 02/21/22 Unknown History Flextouch (Nf)] Metoprolol [Lopressor TAB] 50 mg PO DAILY 02/21/22 02/21/22 Unknown History Mycophenolate [Cellcept] 1,000 mg PO BID 02/21/22 02/21/22 Unknown History Sevelamer Carbonate [Renvela] 800 mg PO TIDWM 02/21/22 02/21/22 Unknown History predniSONE [Deltasone] 5 mg PO QDAY 02/21/22 02/21/22 Unknown History Doxycycline Hyclate 100 mg PO BID #14 cap 02/22/22 Unknown Rx Famotidine [Pepcid] 40 mg PO QDAY #30 tablet 02/22/22 Unknown Rx cilostazoL [Pletal] 100 mg PO BID #60 tablet 02/22/22 Unknown Rx Active Medications: Generic Name Dose Route Start Last Admin Trade Name Freq PRN Reason Stop Dose Admin Acetaminophen 650 mg 02/17/22 11:00 Acetaminophen 325 Mg Tab PO Q4H PRN Pain MILD(1-3)/Fever >100.5/HELLER Cilostazol 100 mg 02/17/22 15:00 02/22/22 09:33 Cilostazol 100 Mg Tab PO 100 mg BID [facility] Administration Clopidogrel Bisulfate 75 mg 02/18/22 10:00 02/22/22 09:33 Clopidogrel 75 Mg Tab PO 75 mg QDAY [facility] Administration Dextrose 50 ml 02/17/22 17:24 Dextrose 50% In Water (25gm) 50 Ml Syringe IV Q30MIN PRN Hypoglycemia Protocol Famotidine 40 mg 02/17/22 16:00 02/22/22 09:33 Famotidine 20 Mg Tab PO 40 mg QDAY [facility] Administration Heparin Sodium (Porcine) 5,000 unit 02/17/22 14:00 02/22/22 08:00 Heparin 5,000 Unit/1 Ml Vial SUB-Q 5,000 unit TID [facility] Administration Ceftriaxone Sodium 2 gm in 100 mls @ 200 mls/hr 02/17/22 20:00 02/21/22 20:53 Rocephin/Ns 2 Gm/100 Ml IV 200 mls/hr Q24H [facility] Administration Protocol Insulin Glargine 10 units 02/17/22 22:00 02/21/22 22:17 Insulin Glargine 100 Units/Ml SUB-Q 10 units QHS [facility] Administration Insulin Human Lispro 0 unit 02/17/22 22:00 02/22/22 07:30 Insulin Lispro 100 Unit/Ml SUB-Q Not Given ACHS [facility] Protocol Insulin Human Regular 6 units 02/18/22 07:30 02/22/22 07:30 Insulin Regular, Human 100 Units/1 Ml SUB-Q Not Given AC [facility] Metoclopramide HCl 10 mg 02/19/22 06:44 02/21/22 22:17 Metoclopramide 10 Mg/2 Ml Inj IV 10 mg Q8H PRN Administration Nausea And Vomiting Metoprolol Succinate 50 mg 02/18/22 10:00 02/22/22 09:33 Metoprolol Succinate Xl 50 Mg Tab PO 50 mg QDAY [facility] Administration Morphine Sulfate 1 mg 02/20/22 12:00 Morphine 2 Mg/1 Ml Inj IV Q6H PRN Pain, Moderate (4-6) Mycophenolate Mofetil 500 mg 02/17/22 22:00 02/22/22 09:33 Mycophenolate 500 Mg Tab PO 500 mg BID [facility] Administration Nifedipine 90 mg 02/19/22 10:00 02/22/22 09:33 Nifedipine Xl 90 Mg Tab PO 90 mg DAILY [facility] Administration Ondansetron HCl 4 mg 02/17/22 11:00 02/19/22 04:01 Ondansetron 4 Mg/2 Ml Inj IV 4 mg Q8H PRN Administration Nausea And Vomiting Oxycodone/Acetaminophen 1 tab 02/20/22 12:00 02/20/22 17:51 Oxycodone /Acetaminophen 5-325mg Tab PO 1 tab Q8H PRN Administration Pain, Moderate (4-6) Prednisone 5 mg 02/17/22 12:00 02/22/22 09:33 Prednisone 5 Mg Tab PO 5 mg QDAY [facility] Administration Sodium Chloride 10 ml 02/17/22 22:00 02/22/22 09:32 Sodium Chloride 0.9% 10 Ml Flush Syringe IV 10 ml BID [facility] Administration Sodium Chloride 10 ml 02/17/22 11:00 Sodium Chloride 0.9% 10 Ml Flush Syringe IV PRN PRN LINE FLUSH
== END 2022-02-22 12:12 | disposition home health service (06) | DRG 240 ==
LOC: ED 06:19 → 3A 11:00 → IMCU 17:20 → 3A 02-19 14:24
PROVIDERS: ADMIT Student in an Organized Health Care Education/Training Program; ATTEND Internal Medicine
PROC: 047R3ZZ Dilation of Right Posterior Tibial Artery, Percutaneous Approach (ICD-10-PCS; 2022-02-17)
PROC: B4101ZZ Fluoroscopy of Abdominal Aorta using Low Osmolar Contrast (ICD-10-PCS; 2022-02-17)
PROC: B41F1ZZ Fluoroscopy of Right Lower Extremity Arteries using Low Osmolar Contrast (ICD-10-PCS; 2022-02-17)
PROC: B41G1ZZ Fluoroscopy of Left Lower Extremity Arteries using Low Osmolar Contrast (ICD-10-PCS; 2022-02-17)
PROC: 0Y6M0Z9 Detachment at Right Foot, Partial 1st Ray, Open Approach (ICD-10-PCS; principal; 2022-02-18)
PROC: 0Y6M0ZB Detachment at Right Foot, Partial 2nd Ray, Open Approach (ICD-10-PCS; 2022-02-18)
PROC: 0Y6M0ZC Detachment at Right Foot, Partial 3rd Ray, Open Approach (ICD-10-PCS; 2022-02-18)
PROC: 0Y6M0ZD Detachment at Right Foot, Partial 4th Ray, Open Approach (ICD-10-PCS; 2022-02-18)
PROC: 0Y6M0ZF Detachment at Right Foot, Partial 5th Ray, Open Approach (ICD-10-PCS; 2022-02-18)
DX: E11.52 Type 2 diabetes mellitus with diabetic peripheral angiopathy with gangrene (principal); R78.81 Bacteremia; M86.171 Other acute osteomyelitis, right ankle and foot; Z94.0 Kidney transplant status; D84.9 Immunodeficiency, unspecified; I70.221 Atherosclerosis of native arteries of extremities with rest pain, right leg; E66.9 Obesity, unspecified; E11.22 Type 2 diabetes mellitus with diabetic chronic kidney disease; E11.69 Type 2 diabetes mellitus with other specified complication; Z88.8 Allergy status to other drugs, medicaments and biological substances; Z79.899 Other long term (current) drug therapy; Z90.49 Acquired absence of other specified parts of digestive tract; Z87.891 Personal history of nicotine dependence; Z89.411 Acquired absence of right great toe; Z71.6 Tobacco abuse counseling; Z68.33 Body mass index [BMI] 33.0-33.9, adult; I10 Essential (primary) hypertension
CPT/HCPCS: 36415; 37228; 76937; 80048; 80053; 81001; 82140; 82962; 85014; 85018; 85025; 85610; 85730; 86850; 86900; 86901; 87040; 88307; 88311; 96361; 96374; G0378; J3490; Q9967; C1725; C1760; C1769; C1887; J0690; J0696; J1170; J1644; J1815; J2250; J2270; J2405; J2704; J2765; J3010; J7030; J7120; J7512; J7517

== ENCOUNTER 2022-04-08 08:44 | Day surgery (SDC) | payer BC, MEDICARE, OTHER ==
[~2022-04-08 08:44] MED LIST: ACETAMINOPHEN 500 MG TAB PO SCH; LACTATED RINGERS 1,000 ML IV SCH; MIDAZOLAM 2 MG/2 ML INJ IV NR; ceFAZolin/Water 2 GM/20 ML 2 GM/20 ML SYRINGE IV NR
--- NOTE | 2022-04-08 10:51 | Anesthesia Consultation ---
Anesthesia Consult and Med Hx Date of service: 04/08/22 - Airway Anesthetic Teeth Evaluation: Good (chipped lower incisor) ROM Head & Neck: Adequate Mental/Hyoid Distance: Adequate Mallampati Class: Class III Intubation Access Assessment: Possibly Difficult (previous LMAa 4) - Pre-Operative Health Status ASA Pre-Surgery Classification: ASA3 Proposed Anesthetic Plan: General - Pulmonary Hx Smoking: Yes (quit 30yrs ago) Hx Respiratory Symptoms: No - Cardiovascular System Hx Hypertension: Yes Hx Heart Attack/AMI: No - Central Nervous System CVA: No - Endocrine Hx Renal Disease: Yes (hx eSRD s/p renal transplant in 2012; no longer on HD) Hx Liver Disease: No Hx Insulin Dependent Diabetes: Yes Hx Thyroid Disease: No - Additional Comments Anesthesia Medical History Comments: No hx anesthetic complications. Was here for TMA under [place] 02/2022 without complications.
[2022-04-08] MEDS ORDERED: HYDROmorphone 0.5 MG/0.5 ML INJ IV PRN (10:52)
[2022-04-08] MEDS ORDERED: oxyCODONE /ACETAMINOPHEN 5-325MG TAB PO PRN (10:52)
--- NOTE | 2022-04-08 10:52 | Anesthesia Day of Surgery ---
Anesthesia Day of Surgery - Day of Surgery Patient Examined: Yes Patient H&P Reviewed: Yes Patient is NPO: Yes
[2022-04-08] MEDS ORDERED: ONDANSETRON 4 MG/2 ML INJ IV PRN (11:00)
[2022-04-08 11:26] LABS: Hematocrit 46.3 % (35.5-45.6); Hemoglobin 14.8 gm/dl (11.8-15.2); Mean Corpuscular HGB Conc 32 % (32-34); Mean Corpuscular Volume 88 fl (84-94); Platelet Count 165 K/mm3 (140-440); Red Blood Count 5.27 M/mm3 (3.65-5.03); Red Cell Distribution Width 15.4 % (13.2-15.2)
[2022-04-08 11:38] LABS: BUN/Creatinine Ratio 23; Blood Urea Nitrogen 21 mg/dL (9-20); Calcium 10.6 mg/dL (8.4-10.2); Hemolysis Index 17
[2022-04-08] MEDS ORDERED: LIDOCAINE MPF (2%) 20 MG/1 ML VIAL 5 ML ONE (13:31)
[2022-04-08] MEDS ORDERED: fentaNYL 100 MCG/2 ML INJ ONE (13:31)
[2022-04-08] MEDS ORDERED: propofoL 200 MG/20 ML VIAL IV ONE (13:31)
[2022-04-08] MEDS ORDERED: ePHEDrine SULFATE 50 MG/1 ML INJ ONE (13:45)
[2022-04-08] MEDS ORDERED: SODIUM CHLORIDE 0.9% IRR 1,500 ML BOTTLE IR ONE (14:15)
--- NOTE | 2022-04-08 15:11 | Short Stay Summary ---
Short Stay Documentation Date of service: 04/08/22 Narrative H&P: See H&P - History H&P: obtained from office - Allergies and Medications Current Medications: Allergies promethazine HCl [From Phenergan] Adverse Reaction (Mild, Verified 09/07/13 10:51) Unknown PT STATES HE GETS ERECTION WITH PHENERGAN. HE STATES HE DOES NOT LIKE THIS MEDICATION. Home Medications Medication Instructions Recorded Confirmed Last Taken Type Insulin Aspart (Nf) [NovoLOG 16 units SQ TID 02/21/22 02/21/22 04/07/22 History Flexpen] Mycophenolate [Cellcept] 1,000 mg PO BID 02/21/22 02/21/22 04/07/22 History cilostazoL [Pletal] 100 mg PO BID #60 tablet 02/22/22 04/07/22 Rx Pantoprazole Sodium 20 mg PO DAILY 04/07/22 04/07/22 04/07/22 History predniSONE [Deltasone] 5 mg PO QDAY 04/07/22 04/07/22 04/07/22 History Active Medications Acetaminophen (Acetaminophen 500 Mg Tab) 1,000 mg PO PREOP [facility] Last Admin: 04/08/22 10:45 Dose: 1,000 mg Hydromorphone HCl (Hydromorphone 0.5 Mg/0.5 Ml Inj) 0.5 mg IV Q10MIN PRN PRN Reason: Pain , Severe (7-10) Stop: 04/08/22 20:00 Lactated Ringer's (Lactated Ringers) 1,000 mls @ 100 mls/hr IV DIRECT [facility] Stop: 04/08/22 23:59 Last Admin: 04/08/22 10:30 Dose: 100 mls/hr Cefazolin Sodium (Ancef/Sterile Water 2 Gm/20 Ml) 2 gm in 20 mls @ 80 mls/hr IV PREOP NR; Protocol Stop: 04/08/22 23:59 Midazolam HCl (Midazolam 2 Mg/2 Ml Inj) 2 mg IV PREOP NR Stop: 04/08/22 23:59 Last Admin: 04/08/22 12:00 Dose: 2 mg - Brief post op/procedure progress note Date of procedure: 04/08/22 Pre-op diagnosis: Peripheral Vascular Disease with Nonhealing Right TMA Post-op diagnosis: same Procedure: 1. Excisional Debridement of Skin, Muscle, and Soft Tissue of Right TMA (Wound Measures 10.5 x 5 x 1 cm) 2. Placement of 10 cm x 12.5 cm Integra Bilayer Wound Matrix 3. Wound VAC Placement Anesthesia: GETA Surgeon: LATONIA SCRUGGS Estimated blood loss: minimal Pathology: list (Necrotic skin and soft tissue, from right TMA, was discarded) Specimen disposition: discarded Condition: stable - Disposition Condition at discharge: Good Disposition: 01 HOME / SELF CARE / HOMELESS Short Stay Discharge Plan Weight Bearing Status: Non-Weight Bearing (Nonweightbearing on right foot) Wound: other (Do not remove right foot wound VAC for 1 week) Follow up with: LATONIA SCRUGGS MD [Staff Physician] - 04/14/22 1:00 pm
--- NOTE | 2022-04-08 15:25 | Operative Report ---
Operative Report Operative Report: Date of Procedure: 04/08/2022 Pre-operative Diagnosis: Peripheral Vascular Disease with Nonhealing Right Trans metatarsal Amputation Post-operative Diagnosis: Same Procedure(s): 1. Excisional Debridement of Skin, Muscle, and Soft Tissue of Right TMA (Wound Measures 10.5 x 5 x 1 cm) 2. Placement of 10 cm x 12.5 cm Integra Bilayer Wound Matrix 3. Wound VAC Placement Surgeon: Isreal Ybarra M.D. Pulverizer Mill Operator: None Anesthesia: General Endotracheal Anesthesia EBL: Minimal Counts: Correct Complications: None Condition: Stay Findings: All remaining tissue was healthy and viable at the completion of the case Specimen: Skin, muscle, and soft tissue from right transmetatarsal amputation was discarded. Indication: The patient is a 66-year-old male with a history of peripheral vascular disease who underwent revascularization and then required a right transmetatarsal amputation. He developed an eschar on the posterior flap and now requires debridement with placement of a wound matrix and a wound VAC. He was given the risk, benefits, and alternative procedures and consented to the procedure. Description of Procedure: The patient was brought to the operating room and laid in supine position. After timeout was performed general endotracheal anesthesia was achieved and the patient's right foot was prepped and draped in normal sterile fashion. A 10 blade was used to sharply excise around the eschar and then curved Mayos were used to completely excise the eschar. Curved Mayos were used to further debride any necrotic tissue in the wound bed until only healthy bleeding tissue was remaining in the wound base. The distal tip of the first metatarsal and fifth metatarsal were exposed however they appeared healthy without overt signs of osteomyelitis. The wound was copiously irrigated and there was no evidence of purulence or remaining necrotic tissue. Hemostasis within the wound was achieved with a combination of cautery and direct pressure. Once hemostasis was achieved a 10 cm x 12.5 cm Integra Bilayer Wound Matrix was chosen and placed in warm saline. Once the wound matrix was prepped the piece was cut to the length of the wound and an 11 blade was used to mesh the piece. This piece was then placed on the back table. The remaining piece was then used and the back end of a DeBakey was used to separate the collagen from the silicone and was used to fill the gaps within the tissue as well as to cover the exposed bone. I then used the piece that had been cut to length and placed it over the wound, ensuring that the silicone was facing outwards. I secured the piece in place using 3-0 Ethilon in interrupted fashion. I then secured a piece of Adaptic over the wound matrix using 4-0 chromic in interrupted fashion. I then placed a wound VAC over the wound matrix and was able to obtain an adequate seal. I then wrapped the wound with a Kerlix roll. The patient tolerated the procedure well. All sponge, needle, and instrument counts were correct. The patient was transported to the recovery area in stable condition.
[2022-04-08 17:39] VITALS: BP 152/77
== END 2022-04-08 16:40 | disposition home or self-care (01) ==
LOC: CATH 08:44 → CATHLABREC 08:44
PROVIDERS: ATTEND Surgery Vascular Surgery
DX: I70.235 Atherosclerosis of native arteries of right leg with ulceration of other part of foot (principal); E11.51 Type 2 diabetes mellitus with diabetic peripheral angiopathy without gangrene; I25.10 Atherosclerotic heart disease of native coronary artery without angina pectoris; E78.00 Pure hypercholesterolemia, unspecified; I12.0 Hypertensive chronic kidney disease with stage 5 chronic kidney disease or end stage renal disease; E11.22 Type 2 diabetes mellitus with diabetic chronic kidney disease; N18.6 End stage renal disease; D64.9 Anemia, unspecified; Z72.89 Other problems related to lifestyle; Z98.890 Other specified postprocedural states; Z88.8 Allergy status to other drugs, medicaments and biological substances; Z87.891 Personal history of nicotine dependence; Z79.899 Other long term (current) drug therapy; Z79.4 Long term (current) use of insulin; Z94.0 Kidney transplant status; Z98.41 Cataract extraction status, right eye; Z98.42 Cataract extraction status, left eye; Z90.49 Acquired absence of other specified parts of digestive tract
CPT/HCPCS: 11043; 36415; 80048; 82962; 85027; J0690; J2250; J2704; J3010; J3490; J7120